=== PATIENT | male | born 1975 | race Caucasian/White ===

== ENCOUNTER 2017-02-02 08:21 | Emergency (ER) | payer OTHER ==
--- NOTE | 2017-02-02 11:59 | DIAGNOSTIC IMAGING REPORT ---
PROCEDURE: XR ABDOMEN 1 VIEW INDICATION: ABDOMINAL PAIN TECHNIQUE: AP supine views. COMPARISON: None. FINDINGS: Bowel pattern is normal. Soft tissues and osseous structures are normal. IMPRESSION: 1. Normal abdomen.
--- NOTE | 2017-02-02 12:37 | ED NURSING NOTES ---
Clinical Report - Nurses [facility] [address] [place] [address] 02/02/2017 8:23 Patient: RA VARGAS TRIAGE Triage time 0840. Acuity: LEVEL 3. Chief Complaint: ABDOMINAL PAIN and ("my stomach is rock hard!" and hurts). Alert. --09:01 Aria Franco R.N. 09:00 02/02/17. BP: 121/86. HR: 92. RR: 18. O2 saturation: 100%. Temp: 97.5 F. Pain level now: 05/30. --09:01 Aria Franco R.N. Weight: 122.4 kg stated. Height/Length: 73 inches Per Patient. BMI: 35.6. --09:00 Aria Franco R.N. Medications Gabapentin Oral. --08:55 Aria Franco R.N. Carvedilol Phosphate ER Oral. Furosemide Oral. --08:55 Aria Franco R.N. PT doesn't know any medication doses he takes. --11:14 Aria Franco R.N. Allergies Sulfa Antibiotics. --08:55 Aria Franco R.N. Tramadol. --08:56 Aria Franco R.N. History Arrived by private vehicle. Historian: patient. Accompanied by father. Primary physician (Rubens). This started last night. Treatment [employer]: None. SOCIAL HX: Smoker- current status unknown (cigarette). No alcohol use or drug use. NUTRITIONAL RISK ASSESSMENT: The nutritional risk assessment revealed no deficiencies. FUNCTIONAL ASSESSMENT: Functional assessment: no impairments noted. --09:01 Aria Franco R.N. PROBLEMS: Laceration. Abscess. Hyperlipidemia. High blood pressure. --08:57 Aria Franco R.N. Cellulitis LE's. CHF. --08:59 Aria Franco R.N. The following entry was modified by Aria Franco R.N., 08:58 Reason - Struck from template <<STRICKEN ENTRY-- Diabetes Mellitus. --08:58 Aria Franco R.N. --END STRIKE>>. ADDITIONAL SURGERIES: Back Surgery. Knee Surgery. --08:57 Aria Franco R.N. Interventions ID band on patient. To room. --09:01 Aria Franco R.N. PHYSICAL ASSESSMENT 09:02 02/02/17. GENERAL / NEURO / PSYCH: Alert. Oriented X 4. Appears anxious and in distress. Decreased awareness. --09:02 Aria Franco R.N. 09:02 02/02/17. RESPIRATORY: ( Last BM 2 days ago). --09:02 Aria Franco R.N. CVS: ( Pt states he took a stool softener last night.). --09:02 Aria Franco R.N. NURSING PROGRESS NOTES 08:54 02/02/2017 Site #1 started via IV in the right antecubital space with an 20g angiocath, with aseptic technique and good blood return; one attempt. Blood drawn: rainbow set. Labeled in the presence of the patient and sent to the lab. Saline lock flushed with 10 mL saline. --09:04 Aria Franco R.N. 09:02 02/02/17. Patient identifiers checked. Call light placed in reach. Bed placed in lowest position. Patient ready for evaluation- chart flagged. --09:02 Aria Franco R.N. 09:39 02/02/17. ( Pt in bathroom, checked on him since he has been in there for several minutes, pt's father states that he takes a half hour sometimes. Asked father to let me know when he comes back to get his fluids and meds given.). --09:39 Aria Franco R.N. 09:40 02/02/2017 Started bag #1 1000 mL IV Fluids IV NS (Saline); at 1000 mL/hr via site #1 via IV pump. Confirmed 5 rights. --09:45 Aria Franco R.N. 09:41 02/02/2017 Zofran (Ondansetron HCl) IVP 4 mg given over 1 minute(s) via site #1. Confirmed 5 rights. --09:45 Aria Franco R.N. 09:42 02/02/2017 Demerol (Meperidine HCl) IVP 50 mg given over 2 minute(s) via site #1. Allergies verified and confirmed 5 rights. --09:46 Aria Franco R.N. 09:44 02/02/17. ( Pt back from bathroom, states had a large BM, states his pain is 5/10 now, not 10/10. UA sent to lab.). --09:44 Aria Franco R.N. 10:45 02/02/2017 IV Fluids IV NS Discontinued: bag #1 infused. Total amount infused: 1000 mL. IV patency established. IV site checked: no pain, redness, or swelling. IV flushed thoroughly. --10:45 Aria Franco R.N. 10:51 02/02/2017 Benadryl (DiphenhydrAMINE HCl) IVP 25 mg given over 1 minute(s) via site #1. Confirmed 5 rights. --10:57 Aria Franco R.N. 10:58 02/02/2017 Lasix IVP 40 mg given over 4 minute(s) via site #1. Confirmed 5 rights. --10:58 Aria Franco R.N. 11:19 02/02/17. ( Pt found sound asleep, starting to hang off the stretcher, awakened, side rail pulled up, urinal at bedside.). --11:19 Aria Franco R.N. ( Pt given apple juice, ok'd with ERMD). --11:28 Aria Franco R.N. 11:27 02/02/17. BP: 139/97. HR: 96. RR: 18. O2 saturation: 100%. Pain level now: 0/10. --11:28 Aria Franco R.N. The patient is resting quietly. Overall patient status is improved- he states feels better (however, itching is not any better). --11:30 Aria Franco R.N. 12:34 02/02/17. Overall patient status is improved- he states feels better. --12:34 Aria Franco R.N. ( Pt states he passed a 2nd BM in bathroom.). --12:36 Aria Franco R.N. Intake & Output 11:29 02/02/17. IV fluids: 1000 mL. Urine: 375 mL. --11:29 Aria Franco R.N. Urine: 550 mL. --12:02 Aria Franco R.N. Urine: 725 mL. --12:34 Aria Franco R.N. DISPOSITION / DISCHARGE Departure time: 1242. Condition at departure: improved. No learning barriers present. Discharge instructions provided and reviewed with the patient. Reviewed medication(s) information. Prescription(s) given to the patient. Reviewed referral to family practice for followup. Verbalized understanding. Written instructions provided. The patient was discharged home and accompanied by family. He left the Emergency Department ambulatory and via private vehicle. --12:45 Aria Franco R.N. 12:37 02/02/17. BP: 104/68. HR: 87. RR: 18. O2 saturation: 99%. Temp: 98.1 F. Pain level now: 0/10. --12:45 Aria Franco R.N. Locked/Released at 02/02/2017 12:45 by Aria Franco R.N.
--- NOTE | 2017-02-02 12:37 | ED ORDER SUMMARY ---
..... Patient: RA VARGAS OrderSheet [facility] VisitID: [id number] [place] [address] 41y, M Registration Date/Time: 02/02/2017 ORDER SHEET Weight: 122.4 kg (stated) Allergies: Sulfa Antibiotics, Tramadol GENERAL ORDERS: CBC w Diff Urgent (09:02/02/2017 Mari Santos) (Ack 9:14 TBergley) (9:30 LSullivan R.N.) CMP Urgent (09:02/02/2017 Mari Santos) (Ack 9:14 TBergley) (9:30 LSullivan R.N.) UA-Culture if indicated Urgent (:02/02/2017 Mari Santos) (Ack 9:14 TBergley) (9:46 LSullivan R.N.) Amylase Urgent (:02/02/2017 Mari Santos) (Ack 9:14 TBergley) (9:30 LSullivan R.N.) Lipase Urgent (09:02/02/2017 Mari Santos) (Ack 9:14 TBergley) (9:30 LSullivan R.N.) BNP Urgent (09:42 02/02/2017 Mari Santos) (9:46 LSullivan R.N.) Abdomen 1V Urgent (10:43 02/02/2017 Mari Santos) (Ack 10:44 TBergley) (12:01 TBergley) MEDICATION ORDERS: IV FLUIDS: IV Saline Lock (09:03 02/02/2017 LSullivan R.N. per protocol) (9:04 LSullivan R.N.) IV NS : initial bolus none -, then 1000 mL/hr for X1 (NOW) (09:02/02/2017 Mari Santos) (Ack 9:40 LSullivan R.N.) (9:45 LSullivan R.N.) Zofran IV 4 mg (NOW) (09:02/02/2017 Mari Santos) (Ack 9:40 LSullivan R.N.) (9:45 LSullivan R.N.) Demerol IV 50 mg (HIGH ALERT MEDICATION, NOW) (09:11 02/02/2017 Mari Santos) (Ack 9:40 LSullivan R.N.) (9:46 LSullivan R.N.) Benadryl IV 25 mg (NOW) (10:47 02/02/2017 Mari Santos) (10:57 LSullivan R.N.) Lasix IV 40 mg (NOW) (10:47 02/02/2017 Mari Santos) (10:58 LSullivan R.N.) ORDER SHEET NOTES: [Electronically signed by Aria Franco R.N. (12:45 02/02/2017)] [Electronically signed by Mario Rivera Dr. (21:59 02/02/2017)] [Electronically locked/signed by Aria Franco R.N. (12:45 02/02/2017)]
--- NOTE | 2017-02-02 12:37 | ED CLINICAL REPORT ---
Clinical Report - Physicians/Mid Levels [facility] [address] [place] [address] 02/02/2017 8:23 Patient: RA VARGAS Time Seen: 09:04; initial patient contact. Arrived- By private vehicle. Historian- patient. HISTORY OF PRESENT ILLNESS Chief Complaint: ABDOMINAL PAIN. At its maximum, severity described as severe. When seen in the E.D., severity described as severe. Modifying factors. Not worsened by anything. Not relieved by anything. This started last night and is still present. It is described as "pain". No radiation. It is described as located in the right lower quadrant and in the lower abdomen. The patient has had nausea, loss of appetite and vomiting. No diarrhea. Similar symptoms previously: None. Recent medical care: Not recently seen/assessed. REVIEW OF SYSTEMS The patient has had constipation. No difficulty with urination, pain with urination, fever, chest pain or difficulty breathing. No chills. Last bowel movement: a few days ago. All systems otherwise negative, except as recorded above. PAST HISTORY Laceration. Abscess. Hyperlipidemia. High blood pressure. Cellulitis LE's. CHF. . .. SURGERIES: Back Surgery. Knee Surgery. SOCIAL HISTORY Current every day smoker. No alcohol use or drug use. ADDITIONAL NOTES The nursing notes have been reviewed. PHYSICAL EXAM Vital Signs: 02/02/2017 09:00 BP: 121/86. HR: 92. RR: 18. O2 saturation: 100%. Temp: 97.5 F. Pain level now: 1010. Have been reviewed as normal. Appearance: Alert. Appears to be in pain. ENT: Dry mucous membranes present. CVS: Normal heart rate and rhythm. Heart sounds normal. Respiratory: No respiratory distress. Breath sounds normal. Abdomen: Soft. Mild tenderness in the lower abdomen (Exam after a large BM which significantly relieved his pain). No guarding, rebound tenderness or obturator or psoas sign present. Bowel sounds normal. No organomegaly. No mass. Back: Normal inspection. Skin: Skin warm and dry. Extremities: No lower extremity edema. Neuro: Oriented X 3. LABS, X-RAYS, AND EKG KUB: No acute disease. Gas pattern normal. Views: AP. Technique: good. The X-rays were independently viewed by me and interpreted contemporaneously by me. Prior films were not available for comparison. Laboratory Tests: CBC w Diff: (ELMA: 02/02/2017 08:40) ( UtgRcvd 02/02/2017 09:24) Final results Test Result Flag Units (Reference) WHITE BLOOD COUNT 11.6 H K/uL (4.5-11.5) RED BLOOD COUNT 4.95 M/uL (4.50-5.90) HEMOGLOBIN 14.6 gm/dL (13.5-17.5) HEMATOCRIT 44.5 % (41.0-53.0) MEAN CELL VOLUME 90 fL (80-100) MEAN CORPUSCULAR HGB 29 pg (26-34) MEAN CORPUSCULAR HGB CONC 33 g/dL (31-37) RED CELL DISTRIBUTION WIDTH 15.5 H % (11.6-14.8) PLATELET COUNT 275 K/uL (150-400) NEUTROPHIL % 69.0 % (50-75) LYMPH % 20.1 L % (25-40) MONO % 8.9 % (3-14) EOSINOPHIL % 1.6 % (0-4) BASOPHIL % 0.4 % (0-2) CMP: (ELMA: 02/02/2017 08:40) ( MsgRcvd 02/02/2017 09:29) Final results Test Result Flag Units (Reference) GLUCOSE 134 H mg/dL (70-110) BUN 16 mg/dL (7-18) CREATININE 1.2 mg/dL (0.6-1.3) Estimated GFR >60 mL/min Estimated GFR- >60 mL/min Note: Persistent reduction over 3 months in eGFR<60 mL/min/1.73 m2 defines CKD. Patients with eGFR values>=60 mL/min/1.73 m2 may also have CKD if evidence ofpersistent proteinuria. Additional information may be foundat www.kidney.org. SODIUM 146 H mmol/L (136-145) POTASSIUM 3.6 mmol/L (3.5-5.1) CHLORIDE 105 mmol/L (98-107) CARBON DIOXIDE 35 H mmol/L (21-32) CALCIUM 9.1 mg/dL (8.5-10.1) TOTAL PROTEIN 7.5 g/dL (6.4-8.2) ALBUMIN 3.4 g/dL (3.3-5.0) BILIRUBIN, TOTAL 1.6 H mg/dL (0.0-1.0) ALKALINE PHOSPHATASE 79 U/L (46-116) AST (SGOT) 32 U/L (15-37) ALT (SGPT) 46 U/L (12-78) LIPASE 65 L U/L (73-393) AMYLASE 25 U/L (25-115) . PROGRESS AND PROCEDURES Course of Care: 12:35 02/02/17. Pt is now asymptomatic after 2 large BM's. Disposition: Discharged home in good and improved condition. Condition: good. CLINICAL IMPRESSION Chronic mild congestive heart failure Constipation (Resolved). Acute generalized abdominal pain. (Due to constipation. Resolved.). INSTRUCTIONS Your Current Medications: CONTINUE TAKING THE FOLLOWING MEDICATIONS: Carvedilol Phosphate ER Oral. Furosemide Oral. Gabapentin Oral. PT doesn't know any medication doses he takes*. OTC Medications: Colace 100 mg capsules (available over the counter): take 1 capsule orally, twice daily and for 14 days. One refill. Substitution is permissible. Follow-up: Follow up with your doctor Monday. Call for an appointment. Blood pressure screening was not performed during this visit because the patient has an active diagnosis of hypertension. (Electronically signed by Mario Rivera Dr. 02/02/2017 21:59)
--- NOTE | 2017-02-02 12:37 | ED ORDER SUMMARY ---
..... Patient: RA VARGAS OrderSheet [facility] VisitID: [id number] [place] [address] 41y, M Registration Date/Time: 02/02/2017 ORDER SHEET Weight: 122.4 kg (stated) Allergies: Sulfa Antibiotics, Tramadol GENERAL ORDERS: CBC w Diff Urgent (09:02/02/2017 Mari Santos) (Ack 9:14 TBergley) (9:30 LSullivan R.N.) CMP Urgent (09:02/02/2017 Mari Santos) (Ack 9:14 TBergley) (9:30 LSullivan R.N.) UA-Culture if indicated Urgent (:02/02/2017 Mari Santos) (Ack 9:14 TBergley) (9:46 LSullivan R.N.) Amylase Urgent (:02/02/2017 Mari Santos) (Ack 9:14 TBergley) (9:30 LSullivan R.N.) Lipase Urgent (09:02/02/2017 Mari Santos) (Ack 9:14 TBergley) (9:30 LSullivan R.N.) BNP Urgent (09:42 02/02/2017 Mari Santos) (9:46 LSullivan R.N.) Abdomen 1V Urgent (10:43 02/02/2017 Mari Santos) (Ack 10:44 TBergley) (12:01 TBergley) MEDICATION ORDERS: IV FLUIDS: IV Saline Lock (09:03 02/02/2017 LSullivan R.N. per protocol) (9:04 LSullivan R.N.) IV NS : initial bolus none -, then 1000 mL/hr for X1 (NOW) (09:02/02/2017 Mari Santos) (Ack 9:40 LSullivan R.N.) (9:45 LSullivan R.N.) Zofran IV 4 mg (NOW) (09:02/02/2017 Mari Santos) (Ack 9:40 LSullivan R.N.) (9:45 LSullivan R.N.) Demerol IV 50 mg (HIGH ALERT MEDICATION, NOW) (09:11 02/02/2017 Mari Santos) (Ack 9:40 LSullivan R.N.) (9:46 LSullivan R.N.) Benadryl IV 25 mg (NOW) (10:47 02/02/2017 Mari Santos) (10:57 LSullivan R.N.) Lasix IV 40 mg (NOW) (10:47 02/02/2017 Mari Santos) (10:58 LSullivan R.N.) ORDER SHEET NOTES: [Electronically signed by Aria Franco R.N. (12:45 02/02/2017)] [Electronically signed by Mario Rivera Dr. (21:59 02/02/2017)] [Electronically locked/signed by Aria Franco R.N. (12:45 02/02/2017)]
--- NOTE | 2017-02-02 21:59 | ED MED RECONCILIATION SUMMARY ---
Patient: RA VARGAS Medication Reconciliation Report [facility] VisitID: [id number] [address] [place] [address] 41y, M Registration Date/Time: 02/02/2017 Weight: 122.4 kg Height/Length: 73 in. BMI: 35.6 ALLERGIES: Sulfa Antibiotics, Tramadol The patient's Home Medications are listed below: CONTINUE TAKING THE FOLLOWING MEDICATIONS: Carvedilol Phosphate ER Oral Furosemide Oral Gabapentin Oral PT doesn't know any medication doses he takes The source(s) of the original Home Medication information: Not obtained. The following Medications were given to the patient in the Emergency Department: IV NS IV Fluids bolus 0, then 1000 mL/hr, administered: 02/02/2017 9:40:00 AM Zofran [IVP] IVP 4 mg, administered: 02/02/2017 9:41:00 AM Demerol [IVP] IVP 50 mg, administered: 02/02/2017 9:42:00 AM Benadryl [IVP] IVP 25 mg, administered: 02/02/2017 10:51:00 AM Lasix [IVP] IVP 40 mg, administered: 02/02/2017 10:58:00 AM The following Medications were prescribed to the patient: Colace 100 mg capsules (available over the counter): take 1 capsule orally, twice daily and for 14 days. One refill. Substitution is permissible. -- Mario Rivera Dr.
--- NOTE | 2017-02-02 21:59 | ED MED RECONCILIATION SUMMARY ---
Patient: RA VARGAS Medication Reconciliation Report [facility] VisitID: [id number] [address] [place] [address] 41y, M Registration Date/Time: 02/02/2017 Weight: 122.4 kg Height/Length: 73 in. BMI: 35.6 ALLERGIES: Sulfa Antibiotics, Tramadol The patient's Home Medications are listed below: CONTINUE TAKING THE FOLLOWING MEDICATIONS: Carvedilol Phosphate ER Oral Furosemide Oral Gabapentin Oral PT doesn't know any medication doses he takes The source(s) of the original Home Medication information: Not obtained. The following Medications were given to the patient in the Emergency Department: IV NS IV Fluids bolus 0, then 1000 mL/hr, administered: 02/02/2017 9:40:00 AM Zofran [IVP] IVP 4 mg, administered: 02/02/2017 9:41:00 AM Demerol [IVP] IVP 50 mg, administered: 02/02/2017 9:42:00 AM Benadryl [IVP] IVP 25 mg, administered: 02/02/2017 10:51:00 AM Lasix [IVP] IVP 40 mg, administered: 02/02/2017 10:58:00 AM The following Medications were prescribed to the patient: Colace 100 mg capsules (available over the counter): take 1 capsule orally, twice daily and for 14 days. One refill. Substitution is permissible. -- Mario Rivera Dr.
--- NOTE | 2017-02-02 21:59 | ED MAR SUMMARY ---
..... Medication Administration Record [facility] [address] [place] [address] Patient: RA VARGAS Visit ID: [id number] 41y, M Weight: 122.4 kg Height/Length: 73 in BMI: 35.6 ALLERGIES: Sulfa Antibiotics, Tramadol Start 09:40 02/02/2017 Aria Franco R.N., Stop 10:45 02/02/2017 Aria Franco R.N. Medication Administered: IV NS (SALINE), Dose: IV Fluids, Rate: 1000 mL/hr, Dispensed: 1000 mL bag, Site: #1 right AC. Medication Ordered: IV NS : initial bolus none -, then 1000 mL/hr for X1 (NOW). Given 09:41 02/02/2017 Aria Franco R.N. Medication Administered: ZOFRAN [IVP] (ONDANSETRON HCL), Dose: 4 mg IVP over 1 minute(s), Site: #1 right AC. Medication Ordered: Zofran IV 4 mg (NOW). Given 09:42 02/02/2017 Aria Franco R.N. Medication Administered: DEMEROL [IVP] (MEPERIDINE HCL), Dose: 50 mg IVP over 2 minute(s), Site: #1 right AC. Medication Ordered: Demerol IV 50 mg (HIGH ALERT MEDICATION, NOW). Given 10:51 02/02/2017 Aria Franco R.N. Medication Administered: BENADRYL [IVP] (DIPHENHYDRAMINE HCL), Dose: 25 mg IVP over 1 minute(s), Site: #1 right AC. Medication Ordered: Benadryl IV 25 mg (NOW). Given 10:58 02/02/2017 Aria Franco R.N. Medication Administered: LASIX [IVP], Dose: 40 mg IVP over 4 minute(s), Site: #1 right AC. Medication Ordered: Lasix IV 40 mg (NOW).
--- NOTE | 2017-02-02 21:59 | ED DISCHARGE INSTRUCTIONS ---
Patient: RA VARGAS General Instructions [facility] VisitID: [id number] [place] [address] 41y, M Registration Date/Time: 02/02/2017 Chronic mild congestive heart failure Constipation (Resolved). Acute generalized abdominal pain. (Due to constipation. Resolved.). INSTRUCTIONS Your Current Medications: CONTINUE TAKING THE FOLLOWING MEDICATIONS: Carvedilol Phosphate ER Oral. Furosemide Oral. Gabapentin Oral. PT doesn't know any medication doses he takes*. OTC Medications: Colace 100 mg capsules (available over the counter): take 1 capsule orally, twice daily and for 14 days. One refill. Substitution is permissible. Follow-up: Follow up with your doctor Monday. Call for an appointment. Blood pressure screening was not performed during this visit because the patient has an active diagnosis of hypertension. ADDITIONAL INFORMATION Abdominal Pain,Uncertain Cause [Male] Based on your visit today, the exact cause of your abdominalpain is not clear. Your exam and tests do not indicate a dangerous cause at this time. However, the signs of a serious problem may take more time to appear. Although your evaluation was reassuring today, sometimes early in the course of many conditions, exam and lab tests can appear normal. Therefore, it is important for you to watch for any new symptoms or worsening of your condition. Causes It may not be obvious what caused your symptoms. Pay attention to things that do seem to make your symptoms worse or better and discuss this with your doctor when you follow up. Diagnosis The evaluation of abdominal pain in the emergency department may onlyrequire an exam by the doctor or it may include blood, urine or imaging studies, depending on many factors. Sometimes exams and tests can identify a cause but in many cases, a clear cause is not found. Further testing at follow up visits may help to suggest a clear diagnosis. Home Care Rest as much as possible until your next exam. Try to avoid any medications (unless otherwise directed by your doctor), foods, activities, or other factors that you may have contributed to your symptoms. Try to eat foods that you know that you have tolerated well in the past. Certain diets may be recommended for some conditions that cause abdominal pain. However, since the cause of your symptoms may not be clear, discuss your diet more with your primary care provider or specialist for further recommendations. Eating several small meals per day as opposed to 2 or 3 larger meals may help. Monitor closely for anything that may make your symptoms worse or better. Pay close attention to symptoms below that may indicate worsening of your condition. Follow Up and Precautions See your doctoras instructed or sooneror if your symptoms are not improving.In some cases, you may need more testing. When to Seek Medical Attention Contact your doctor or see medical attention ifany of the following occur: Pain is becoming worse You are unable to take your medications due to excessive vomiting Swelling of the abdomen Fever of 100.4F (38C) or higher, or as directed by your health care provider Blood in vomit or bowel movements (dark red or black color) Jaundice (yellow color of eyes and skin) New onset of weakness, dizziness or fainting New onset of chest, arm, back, neck or jaw pain Heart Failure (Left Or Right Sided) The heart is a large muscle that pumps blood throughout the body. Blood carries oxygen to all the organs, muscles, and skin of your body. After the body takes the oxygen out of the blood, the blood returns to the heart. The right side of the heart collects that blood and pumps it to the lungs to receive fresh oxygen. This oxygen-rich blood from the lungs then returns to the left side of the heart where it is pumped back out to the rest of the body, starting the process all over. Heart Failure (HF) occurs when the heart muscle is weakened. This affects the pumping action of the heart. When the right side of the heart is weakened, it cant handle the blood it is receiving from the rest of the body. This blood returns to the heart through veins. When too much pressure builds up in the veins fluid leaks out into the tissues. [place] then causes that fluid to spread to those parts of the body that are the lowest. Therefore, one of the first symptoms of HF include swelling in the feet and ankles. If the condition worsens, the swelling can even go up past the knees. When the left side of the heart is weakened, it cant handle the blood it is receiving from the lungs. Pressure then builds up in the veins of the lungs, causing fluid to leakinto the lung tissues. This may be referred to as congestive heart failure.This causes you to feel short of breath, weak, or dizzy. These symptoms are often worse with exertion, such as climbing stairs or walking up hills. Lying flat is uncomfortable and can make your breathing worse. This may make sleeping difficult and force you to useextra pillows to sleep well. This condition may not only affect the right side of the heart or only the left side. While it may have started on one side, it often affects both sides. Causes of heart failure Coronary artery disease Prior heart attack (also known as acute myocardial infarction, or AMI) High blood pressure Damaged heart valve Diabetes Obesity Cigarette smoking Alcohol abuse Treatment Heart failure is a chronic condition. There is no cure. The purpose of medical treatment is to improve the pumping action of the heart, and remove excess water from the body. A number of medications can help achieve this goal,improvesymptoms and prevent the heart from becoming weaker. Another major goal is to better treat the caues of heart failure, such as diabetes, high blood pressure, and your lifestyle. Home care Check your weight every day. A sudden increase in weight gain could mean worsening heart failure. Use the same scale every day Weigh yourself at the same time every day Make sure the scale is on the floor, not on a rug Keep a record of your weight every day, so your doctor can see it. If you are not given a log sheet for this, keep a separate journal for this purpose. Reduce your salt (sodium) intake. Avoid high-salt foods (olives, pickles, smoked meats, salted potato chips, etc.). Do not add salt to your food at the table and use only small amounts of salt when cooking. Follow your doctors recommendations about how much fluid intake is safe. Stop smoking. Reduce alcohol use. Lose weight if you are overweight. The excess weight adds a lot of stress on the workload of the heart. Stay active. Talk to your doctor about an exercise program that is safe for your heart. Keep your feet elevated to reduce swelling. Ask your doctor about support hose as a preventive treatment for daytime leg swelling. Besides taking your medicine as instructed, an important part of treatment includes lifestyle changes such as diet, physical activity, stopping smoking, and weight control. Improve your diet. Often in the hospital, people are given a "heart healthy diet." This includes more fresh foods, lower fat, less processed foots, and lower salt. Follow-up care Follow up with your doctor as directed by our staff. Make sure to keep any appointments that were made for you as this can help better control heart failure. If an X-ray was done, you will be notified of any new findings that may affect your care. Call 911 Call 911 if you: Become severely short of breath Feel lightheaded, or feel like you might pass out or faint Have chest pain or discomfort that is different than usual, the medicines your doctor told you to use for this do not help, or the pain lasts longer than 10 to 15 minutes Suddendly develop a rapid heart rate When to seek medical care Get prompt medical attention if you have any of the following signs of worsening heart failure: Sudden weight gain (3or more pounds in one day or5or more pounds in one week) Trouble breathing not related to being active New or increased swelling of your legs or ankles Swelling or pain in your abdomen Breathing trouble at night (waking up short of breath, needing more pillows to breathe) Frequent coughing that doesnt go away Feeling much more tired than usual Constipation (Adult) Constipation is bowel movements that are less frequent than usual. Stools often become very hard and difficult to pass. This may lead to abdominal pain and bloating. It may also cause painful bowel movements. Constipation may be due to a diet thats low in fiber. Some medications, especially pain medications, can also cause it. Constipation may be treated with enemas, suppositories, laxatives or stool softeners. Your doctor will advise you which will work best for you. Follow the advice below to help avoid this problem in the future. Home Care Medication: Take any medicines as directed. Some laxatives are safe only for occasional use. Others can be taken on a regular basis. Talk to your doctor or pharmacist if you have questions. General Care: Prescription pain medications can cause constipation. If you are prescribed pain medications, ask the doctor whether you should also take a stool softener. A diet high in fiber with plenty of fluids helps to maintain regular, soft bowel movements. The following foods are good sources of dietary fiber: Cereals and breads: Whole grain cereal with bran, oatmeal, rolled oats, whole grain breads Fruits: All fruits (fresh and dried), raisins, prunes, apricots, berries, figs Vegetables: Any fresh vegetables, especially peas, broccoli, brussels sprouts, winter squash, green beans, cauliflower, [place] beans, carrots Other: Popcorn, brown rice Drink plenty of water when you increase the amount of fiber you eat. Follow Up with your doctor or return to this facility if symptoms do not improve in the next few days. You may require further tests or a referral to a specialist. Get Prompt Medical Attention if any of the following occur: Fever over 100.4F (38C) Failure to resume normal bowel movements Increasing abdominal or back pain Nausea or vomiting Abdominal swelling Blood in the stool Weakness, dizziness or fainting Unexpected vaginal bleeding Low-Salt Diet (2 Grams/Day) This diet eliminates foods that are high in salt and restricts the amount of salt that you cook with. It is most often used for patients with high blood pressure, edema (fluid retention), kidney, liver, and heart disease. Table salt contains the mineral sodium. The body needs sodium to work normally. But too much sodium can make your health problems worse. Your healthcare provider is recommending a low-salt (also called low-sodium) diet for you. Your total daily allowance of salt (sodium) is 2 grams. This equals 2,000 milligrams (mg). It is less than 1 teaspoon of table salt. This means you can have only about 700 mg of sodium at each meal. When you cook, limit the salt you use. And if you can avoid using salt, even better. Do not add salt at the table. So, throw away the saltshaker! When shopping, read the package labels. Salt is often called sodium on the label. Choose foods that are Salt-Free, Low Salt, or Very Low Salt. Note that foods with Reduced Salt may notlower your salt intake enough. Beverages OK: Tea, coffee, carbonated beverages, juices AVOID: Flavored international coffees, electrolyte replacement drinks, sports beverages Bread & Cereals OK: All regular bread, rolls, cereals, cakes; low-salt crackers, matzoh crackers AVOID: Salted crackers, pretzels, popcorn; indian toast, pancakes, muffins Fruits & Desserts OK: Ice cream, frozen yogurt, juice bars, gelatin (Jell-O), cookies and pies, sugar, honey, jelly, hard candy AVOID: Most pies, cakes and cookies prepared or processed with salt, instant pudding Meats OK: All fresh meat, fish, poultry, low-salt tuna AVOID: Smoked, pickled, brine-cured, or salted meats or fish. Thisincludes mukherjee, chipped beef, corned beef, hot dogs, luncheon meats, ham, kosher meats, salt pork, sausage, canned tuna, salted codfish, smokedsalmon, [place], sardines, or anchovies. Dairy OK: Milk, chocolate milk, hot chocolate mix; eggs, Low Salt cheeses, yogurt, egg substitute AVOID: Processed cheese, cheese spreads, Ro[place]ef[place], Camembert, and cottage cheese, buttermilk, instant breakfast drink Beans, Potatoes & Pasta OK: Dry beans, split peas, lentils, potatoes, rice, macaroni, noodles, spaghetti without added salt AVOID: Potato chips, tortilla chips, and similar products Soups OK: Low-salt soups and broths made with allowed foods AVOID: Bouillon cubes, soups with smoked or salted meats, regular soup and broth Vegetables OK: Most are okay; low-salt tomato and vegetable juices AVOID: Sauerkraut and other brine-soaked vegetables, pickles and other pickled vegetables, tomato juice, olives Seasoning & Spices OK: Most seasonings are okay. Good substitutes for salt include: fresh herb blends, Tabasco, lemon, garlic, huerta, vinegar, dry mustard, parsley, cilantro, horseradish, tomato paste, regular margarine, mayonnaise, butter, cream cheese, vegetable oil, cream, low-salt salad dressing and gravy AVOID: Regular ketchup, relishes, pickles, soy sauce, teriyaki sauce, Worcestershire sauce, BBQ sauce, tartar sauce, meat tenderizer, chili sauce, regular gravy, regular salad dressing Docusate Sodium Oral tablet What is this medicine? DOCUSATE (doc CUE sayt) is stool softener. It helps prevent constipation and straining or discomfort associated with hard or dry stools. How should I use this medicine? Take this medicine by mouth with a glass of water. Follow the directions on the label. Take your doses at regular intervals. Do not take your medicine more often than directed. Talk to your workers compensation coordinator regarding the use of this medicine in children. While this medicine may be prescribed for children as young as 2 years for selected conditions, precautions do apply. What side effects may I notice from receiving this medicine? Side effects that you should report to your doctor or health career development director as soon as possible: allergic reactions like skin rash, itching or hives, swelling of the face, lips, or tongue Side effects that usually do not require medical attention (report to your doctor or health career development director if they continue or are bothersome): diarrhea stomach cramps throat irritation What may interact with this medicine? mineral oil What if I miss a dose? If you miss a dose, take it as soon as you can. If it is almost time for your next dose, take only that dose. Do not take double or extra doses. Where should I keep my medicine? Keep out of the reach of children. Store at room temperature between 15 and 30 degrees C (59 and 86 degrees F). Throw away any unused medicine after the expiration date. What should I tell my health care provider before I take this medicine? They need to know if you have any of these conditions: nausea or vomiting severe constipation stomach pain sudden change in bowel habit lasting more than 2 weeks an unusual or allergic reaction to docusate, other medicines, foods, dyes, or preservatives or trying to get breast-feeding What should I watch for while using this medicine? Do not use for more than one week without advice from your doctor or health career development director. If your constipation returns, check with your doctor or health career development director. Drink plenty of water while taking this medicine. Drinking water helps decrease constipation. Stop using this medicine and contact your doctor or health career development director if you experience any rectal bleeding or do not have a bowel movement after use. These could be signs of a more serious condition. You have been given the following additional information: Abdominal Pain, Unknown Cause, (Male) Heart Failure, General Constipation (Adult) Diet, Low Salt (2Gm) Docusate Sodium Oral tablet (Electronically signed by Mario Rivera Dr. 02/02/2017 21:59)
--- NOTE | 2017-02-02 21:59 | ED MAR SUMMARY ---
..... Medication Administration Record Located Within [facility] [address] [place] [place] [address] Patient: RA VARGAS Visit ID: [id number] 41y, M Weight: 122.4 kg Height/Length: 73 in BMI: 35.6 ALLERGIES: Sulfa Antibiotics, Tramadol Start 09:40 02/02/2017 Aria Franco R.N., Stop 10:45 02/02/2017 Aria Franco R.N. Medication Administered: IV NS (SALINE), Dose: IV Fluids, Rate: 1000 mL/hr, Dispensed: 1000 mL bag, Site: #1 right AC. Medication Ordered: IV NS : initial bolus none -, then 1000 mL/hr for X1 (NOW). Given 09:41 02/02/2017 Aria Franco R.N. Medication Administered: ZOFRAN [IVP] (ONDANSETRON HCL), Dose: 4 mg IVP over 1 minute(s), Site: #1 right AC. Medication Ordered: Zofran IV 4 mg (NOW). Given 09:42 02/02/2017 Aria Franco R.N. Medication Administered: DEMEROL [IVP] (MEPERIDINE HCL), Dose: 50 mg IVP over 2 minute(s), Site: #1 right AC. Medication Ordered: Demerol IV 50 mg (HIGH ALERT MEDICATION, NOW). Given 10:51 02/02/2017 Aria Franco R.N. Medication Administered: BENADRYL [IVP] (DIPHENHYDRAMINE HCL), Dose: 25 mg IVP over 1 minute(s), Site: #1 right AC. Medication Ordered: Benadryl IV 25 mg (NOW). Given 10:58 02/02/2017 Aria Franco R.N. Medication Administered: LASIX [IVP], Dose: 40 mg IVP over 4 minute(s), Site: #1 right AC. Medication Ordered: Lasix IV 40 mg (NOW).
== END 2017-02-02 12:42 | disposition home or self-care (01) ==
LOC: ED SRH 08:21
DX: K59.00 Constipation, unspecified (principal); I50.9 Heart failure, unspecified; R10.31 Right lower quadrant pain; I11.0 Hypertensive heart disease with heart failure; E78.5 Hyperlipidemia, unspecified; F17.200 Nicotine dependence, unspecified, uncomplicated
CPT/HCPCS: 90004; 90074; 90100; 91320; 92235; 92530; 95059

== ENCOUNTER 2017-02-05 16:38 | Emergency (ER) | payer OTHER ==
--- NOTE | 2017-02-05 18:11 | DIAGNOSTIC IMAGING REPORT ---
PROCEDURE: XR CHEST 1 VIEW INDICATION: SHORTNESS OF BREATH TECHNIQUE: Portable AP view (1705 hours). COMPARISON: None. FINDINGS: Lungs are clear. Moderate cardiomegaly. Mediastinum is normal. Thorax is normal. IMPRESSION: 1. Moderate cardiomegaly. Consider cardiac chamber enlargement or pericardial effusion. 2. Otherwise negative chest.
--- NOTE | 2017-02-05 19:13 | DIAGNOSTIC IMAGING REPORT ---
PROCEDURE: CTA THORAX WITH CONTRAST INDICATION: Short of breath. History of congestive heart failure. TECHNIQUE: 120 ml of Isovue 370 was injected intravenously and axial images were obtained of the entire thorax with 3D sagittal and coronal MIP reconstructions. COMPARISON: Compared to chest x-ray earlier today (02/05/2017). FINDINGS: Study is limited due to poor opacification of peripheral vessels (despite prolonged injection delay). Allowing for this, there is nothing to suggest pulmonary embolus. Moderate cardiomegaly with left ventricular left atrial enlargement. Minimal interstitial edema. Small bilateral pleural effusions (right greater than left) . Mediastinum is normal. Thorax is normal. Portions of the upper abdomen are seen. There is a contracted gallbladder (with moderate ingested material in the stomach). IMPRESSION: 1. Moderate cardiomegaly with left ventricular left atrial enlargement assess with minimal interstitial edema and small pleural effusions (right greater left) . Findings are compatible with congestive heart failure. 2. Limited opacification of peripheral pulmonary vessels. Allowing for this, there is no evidence of pulmonary embolus. 3. Contracted gallbladder which may be a reflection of ingested food or chronic congestive failure. 4. Findings as with Dr. Tate Altamirano. All CT scans at this facility use dose modulation, iterative reconstruction, and/or weight-based dosing when appropriate to reduce radiation dose to as low as reasonably achievable.
--- NOTE | 2017-02-05 19:38 | DIAGNOSTIC IMAGING REPORT ---
PROCEDURE: US VENOUS - BILATERAL EXT INDICATION: Bilateral lower extremity pain and swelling. TECHNIQUE: Color Doppler duplex imaging of the deep and superficial venous system without and with compression. COMPARISON: None. FINDINGS: RIGHT LOWER EXTREMITY: Deep and superficial venous system of the right lower extremity is within normal limits. There is no evidence of deep vein thrombosis or superficial thrombophlebitis. LEFT LOWER EXTREMITY: Deep and superficial venous system of the left lower extremity is within normal limits. There is no evidence of deep vein thrombosis or superficial thrombophlebitis. IMPRESSION: 1. Negative venous ultrasound of the bilateral lower extremities.
--- NOTE | 2017-02-05 19:56 | ED CLINICAL REPORT ---
Clinical Report - Physicians/Mid Levels [facility] [address] [place] [address] 02/05/2017 16:38 Patient: RA VARGAS Time Seen: 16:54. Arrived- By private vehicle. Historian- patient. HISTORY OF PRESENT ILLNESS Chief Complaint: DYSPNEA and HISTORY OF CONGESTIVE HEART FAILURE. This started about 2 days ago and is still present. It was gradual in onset and has been constant. The dyspnea is severe. The patient has had a cough, wheezing, dyspnea on exertion and anxiety and experienced sweating episodes. No sputum production, fever, chills or chest pain or discomfort. No orthopnea. The patient has had severe right and left calf pain. He has had right and left foot swelling (for 3 weeks). Similar symptoms previously: REVIEW OF SYSTEMS He says that he is out of his gabapentin and furosemide. All systems otherwise negative, except as recorded above. PAST HISTORY PCP - Rubens. Problems: Congestive Heart Failure. Abdominal Pain. Constipation. Cellulitis LE's. CHF. Laceration. Abscess. Hyperlipidemia. High blood pressure. Additional Surgeries: Back Surgery. Knee Surgery. Medications: Carvedilol Phosphate ER Oral. Allergies: Sulfa Antibiotics. Tramadol. SOCIAL HISTORY Current every day light tobacco smoker (cigarette)- less than 1/2 a pack per day. No alcohol use or drug use. FAMILY HISTORY Diabetes in first-degree relative (mother and father); heart disease in first-degree relative (father). ADDITIONAL NOTES The nursing notes have been reviewed. PHYSICAL EXAM Vital Signs: 02/05/2017 16:44 BP: 148/109. HR: 103. RR: 24. O2 saturation: 99%. Temp: 97.7 F. Have been reviewed. Appearance: Alert. Anxious. He is morbidly obese. Eyes: Pupils equal, round and reactive to light. ENT: Pharynx normal. Neck: Normal inspection. No jugular venous distention. Neck supple. CVS: Normal heart rate and rhythm. Heart sounds normal. Respiratory: No respiratory distress. Decreased air movement. No rales or rhonchi. Abdomen: Soft and nontender. No organomegaly. Obese. Skin: Skin warm and dry. Extremities: Mild right-sided and left-sided calf tenderness. Extremities exhibit normal ROM. (He had bilateral lower extremity pretibial hairlessness and hyperpigmentation). LABS, X-RAYS, AND EKG EKG: Rate: 95. Nondiagnostic Q waves in lead V1, V2 and V3. Prior EKG unavailable. The study has been independently viewed by me. Chest X-ray: (IMPRESSION: 1. Moderate cardiomegaly. Consider cardiac chamber enlargement or pericardial effusion. 2. Otherwise negative chest.). The X-rays were interpreted contemporaneously by me and discussed with the radiologist. Chest CT: (IMPRESSION: 1. Moderate cardiomegaly with left ventricular left atrial enlargement assess with minimal interstitial edema and small pleural effusions (right greater left). Findings are compatible with congestive heart failure. 2. Limited opacification of peripheral pulmonary vessels. Allowing for this, there is no evidence of pulmonary embolus. 3. Contracted gallbladder which may be a reflection of ingested food or chronic congestive failure.). The study was interpreted contemporaneously by me and discussed with the radiologist. Lower Extremity Sonography: IMPRESSION: 1. Negative venous ultrasound of the bilateral lower extremities. The study was interpreted by the radiologist and contemporaneously by me. Laboratory Tests: UA-Culture if indicated: (ELMA: 02/05/2017 19:05) ( MsgRcvd 02/05/2017 19:40) Final results Test Result Flag Units (Reference) URINE COLOR YELLOW URINE APPEARANCE CLEAR URINE GLUCOSE NEGATIVE (NEGATIVE) URINE BILIRUBIN NEGATIVE (NEGATIVE) URINE KETONE NEGATIVE (NEGATIVE) URINE SPECIFIC GRAVITY 1.010 (1.010-1.030) URINE PH 8.0 (5.0-8.0) URINE PROTEIN NEGATIVE (NEGATIVE) URINE UROBILINOGEN 0.2 EU/dL (0.2-1.0) URINE NITRITE NEGATIVE (NEGATIVE) URINE BLOOD NEGATIVE (NEGATIVE) URINE LEUK ESTERASE NEGATIVE (NEGATIVE) URINE RBC NONE SEEN rbc/hpf (0-1) URINE WBC NONE SEEN wbc/hpf (0-1) URINE EPITHELIAL CELLS RARE EPI/hpf (0-5) URINE BACTERIA NONE SEEN (NONE SEEN) URINE COMMENT CULT NOT INDICATED URINE CULTURES ARE SET-UP BASED ON THE FOLLOWING CRITERIA:POSITIVE NITRITEPOSITIVE LEUKOCYTE ESTERASEGREATER THAN 10 WHITE BLOOD CELLSMODERATE (2+) OR GREATER BACTERIA CBC w Diff: (ELMA: 02/05/2017 16:50) ( [facility] [place] 17:16) Final results Test Result Flag Units (Reference) WHITE BLOOD COUNT 10.7 K/uL (4.5-11.5) RED BLOOD COUNT 4.79 M/uL (4.50-5.90) HEMOGLOBIN 14.0 gm/dL (13.5-17.5) HEMATOCRIT 43.3 % (41.0-53.0) MEAN CELL VOLUME 90 fL (80-100) MEAN CORPUSCULAR HGB 29 pg (26-34) MEAN CORPUSCULAR HGB CONC 32 g/dL (31-37) RED CELL DISTRIBUTION WIDTH 15.6 H % (11.6-14.8) PLATELET COUNT 248 K/uL (150-400) LYMPH % 22.7 L % (25-40) MONO % 2.8 L % (3-14) GRANULOCYTE % 74.5 [id number]: (ELMA: 02/05/2017 16:50) ( [facility] 02/05[facility] 17:35) Final results Test Result Flag Units (Reference) D-DIMER QUANTITATIVE 0.84 H ug/mLFEU (0.27-0.52) The primary value of this quantitative assay relates toits negative predictive value (i.e. exclusion) of pulmonaryembolism/deep vein thrombosis/DIC.Elevated levels of d-dimer may also occur with:, age, cancer, inflammation, liver disease,post-op, infection, hematoma, coronary disease, peripheralarteriopathy, bleeding disorders and thrombolytic treatment.Results should be correlated with other clinical andradiological data.Testing Methodology: Latex Immunoassay BNP: (ELMA: 02/05/2017 16:50) ( [facility] 02/05/2017 18:34) Final results Test Result Flag Units (Reference) B-TYPE NATRIURETIC PEPTIDE 470 H pg/ml (5-100) CMP: (ELMA: 02/05/2017 16:50) ( [facility] [place] 02/05/2017 18:01) Final results Test Result Flag Units (Reference) GLUCOSE 137 H mg/dL (70-110) BUN 23 H mg/dL (7-18) CREATININE 1.3 mg/dL (0.6-1.3) Estimated GFR >60 mL/min Estimated GFR- >60 mL/min Note: Persistent reduction over 3 months in eGFR<60 mL/min/1.73 m2 defines CKD. Patients with eGFR values>=60 mL/min/1.73 m2 may also have CKD if evidence ofpersistent proteinuria. Additional information may be foundat www.kidney.org. SODIUM 141 mmol/L (136-145) POTASSIUM 3.7 mmol/L (3.5-5.1) CHLORIDE 104 mmol/L (98-107) CARBON DIOXIDE 29 mmol/L (21-32) CALCIUM 8.8 mg/dL (8.5-10.1) TOTAL PROTEIN 6.6 g/dL (6.4-8.2) ALBUMIN 2.9 L g/dL (3.3-5.0) BILIRUBIN, TOTAL 0.9 mg/dL (0.0-1.0) ALKALINE PHOSPHATASE 76 U/L (46-116) AST (SGOT) 25 U/L (15-37) ALT (SGPT) 38 U/L (12-78) LIPASE 116 U/L (73-393) AMYLASE 30 U/L (25-115) CPK 140 U/L (24-260) TROPONIN I 0.07 ng/mL (0.00-1.5) TROPONIN REFERENCE RANGE:<0.1 NEGATIVE0.1-1.5 INDETERMINANT>1.5 POSITIVE . PROGRESS AND PROCEDURES Course of Care: Symptoms better. Vital signs have been reviewed. Physical exam findings are improved. Patient/family counseled. Old medical records reviewed. Disposition: Discharged. Condition: stable. CLINICAL IMPRESSION Chronic congestive heart failure INSTRUCTIONS Do not smoke- benefits of smoking cessation discussed (>3 -10 minutes). Seek medical help to quit smoking. Warnings: Further evaluation is necessary. GENERAL WARNINGS: Return or contact your physician immediately if your condition worsens or changes unexpectedly, if not improving as expected, or if other problems arise. Your Current Medications: CONTINUE TAKING THE FOLLOWING MEDICATIONS: Carvedilol Phosphate ER Oral. Prescription Medications: Lasix 20 mg: Take 1 orally every 24 hours. Dispense fifteen (15). No refills. Substitution is permissible. Gabapentin 100 mg capsules: take 1 orally every 8 hours. Dispense forty-five (45). No refill. Follow-up: Follow up with your doctor Art tomorrow. Call for the next available appointment. Understanding of the discharge instructions verbalized by patient. (Electronically signed by Tate Altamirano MD 02/07/2017 9:57)
--- NOTE | 2017-02-05 19:56 | ED ORDER SUMMARY ---
..... Patient: RA VARGAS OrderSheet [facility] VisitID: [id number] [place] [address] 41y, M Registration Date/Time: 02/05/2017 ORDER SHEET Weight: 117.9 kg (estimated) Allergies: Sulfa Antibiotics, Tramadol GENERAL ORDERS: Chest 1V Urgent (16:54 02/05/2017 Christo BORREGO) (Ack 16:56 AMcQuoid ER TechMinnie) (17:05 MWinterer R.N.) Sign Board Erector (Continuous) (16:54 02/05/2017 Christo BORREGO) (Ack 16:56 AMcSabrina ER Julio) (16:56 MWinterer R.N.) CBC w Diff Urgent (16:55 02/05/2017 Christo BORREGO) (Ack 16:56 Rayray ER Julio) (17:05 MWinterer R.N.) CMP Urgent (16:55 02/05/2017 Christo BORREGO) (Ack 16:56 AMcQuoid ER TechMinnie) (17:05 MWinterer R.N.) UA-Culture if indicated Urgent (16:55 02/05/2017 Christo BORREGO) (Ack 16:56 Rayray Kim) (19:03 MWinterer R.N.) Amylase Urgent (16:55 02/05/2017 Christo BORREGO) (Ack 16:56 Rayray ER Julio) (17:05 MWinterer R.N.) Lipase Urgent (16:55 02/05/2017 Christo BORREGO) (Ack 16:56 AMcRanjanoid ER TechMinnie) (17:05 MWinterer R.N.) CPK Urgent (16:55 02/05/2017 Christo BORREGO) (Ack 16:56 AMcSabrina ER Julio) (17:05 MWinterer R.N.) Troponin-I Urgent (16:55 02/05/2017 Christo BORREGO) (Ack 16:56 Rayray ER Julio) (17:05 MWinterer R.N.) D-Dimer Urgent (16:55 02/05/2017 Christo BORREGO) (Ack 16:56 AMcQuoid ER Tech1) (17:05 MWinterer R.N.) Pulse oximeter (16:55 02/05/2017 Christo BORREGO) (Ack 16:56 AMcQuoid ER Tech1) (16:56 MWinterer R.N.) EKG - ER Stat (16:55 02/05/2017 Christo BORREGO) (Ack 16:56 AMcQuoid ER Tech1) (16:56 OHernandez) BNP Urgent (17:54 02/05/2017 Christo BORREGO) (18:08 AMcQuoid ER Tech1) CTA Thorax w Cont (No) (See report) Urgent (18:12 02/05/2017 Christo BORREGO) (Ack 18:15 AMcQuoid ER Tech1) (18:48 Levi) US Venous Bilat Urgent (18:34 02/05/2017 Chritso BORREGO) (Ack 18:35 AMcQuoid ER Tech1) (19:09 EHassan R.N.) MEDICATION ORDERS: IV FLUIDS: IV Saline Lock (16:55 02/05/2017 Christo BORREGO) (17:05 MWinterer R.N.) Lasix IV 40 mg (NOW) (18:10 02/05/2017 Christo BORREGO) (Cancelled: Other18:11 Christo BORREGO) Lasix IV 40 mg (NOW) (19:08 02/05/2017 Christo BORREGO) (19:13 EHassan R.N.) ORDER SHEET NOTES: [Electronically signed by Anayeli Gardiner R.N. (23:59 02/05/2017)] [Electronically signed by Tate Altamirano MD (09:57 02/07/2017)] [Electronically locked/signed by Anayeli Gardiner R.N. (23:59 02/05/2017)]
--- NOTE | 2017-02-05 19:56 | ED NURSING NOTES ---
Clinical Report - Nurses [facility] [address] [place] [address] 02/05/2017 16:38 [id number] TRI[facility] Triage time 16:42. Acuity: LEVEL 3. Chief Complaint: SHORTNESS OF BREATH and DIFFICULTY BREATHING. 16:49 02/05/17. Alert. No acute distress. ANGELA COMA SCORE: [place] Coma Scale: 15- eyes open spontaneously (4); best verbal response- oriented x 4 (5); best motor response- obeys commands (6). --16:49 Rolly Pham R.N. 16:44 02/05/17. BP: 148/109. HR: 103. RR: 24. O2 saturation: 99% on room air. Temp: 97.7 F (oral). Pain level now 8/10. --16:49 Rolly Pham R.N. Weight: 117.9 kg estimated. Height/Length: 73 inches Per Patient. BMI: 34.3. --16:43 Rolly Pham R.N. Medications Carvedilol Phosphate ER Oral. --16:48 Rolly Pham R.N. Allergies Sulfa Antibiotics. --16:48 Rolly Pham R.N. Tramadol. --16:48 Rolly Pham R.N. Medication/allergy information source: the patient. --16:49 Rolly Pham R.N. History Arrived by private vehicle. Primary physician (angelo). ( revisit for shortness of breath and left leg cellulitis. States he was seen here earlier in the week. Pt states he was diagnosed with cellulitis "months ago". Also complains of abdomen feeling full.). Onset. (1 - 2 months ago). Treatment MAINTENANCE ELECTRICIAN: None. SOCIAL HX: Heavy tobacco smoker (cigarette)- less than 1 pack per day. No alcohol use or drug use. ABUSE ASSESSMENT: Abuse assessment: The patient was asked "Do you feel safe in your home?". No report of abuse. SELF HARM ASSESSMENT: A self harm assessment was performed. The patient answered "no" to the question "Do you have thoughts of harming or killing yourself?" and "Have you recently had thoughts about harming or killing others?". FALL RISK ASSESSMENT: Fall risk assessment completed. No fall risk identified. NUTRITIONAL RISK ASSESSMENT: The nutritional risk assessment revealed no deficiencies. FUNCTIONAL ASSESSMENT: Functional assessment: no impairments noted. LEARNING NEEDS ASSESSMENT: The learning needs assessment revealed no barriers. SKIN INTEGRITY ASSESSMENT: Skin integrity risk assessment completed. No skin integrity risk identified. --16:49 Rolly Pham R.N. ( pt states he can't find his lasix). --16:51 Rolly Pham R.N. PROBLEMS: Congestive Heart Failure. Abdominal Pain. Constipation. Cellulitis LE's. CHF. Laceration. Abscess. Hyperlipidemia. High blood pressure. --16:48 Rolly Pham R.N. ADDITIONAL SURGERIES: Back Surgery. Knee Surgery. --16:48 Rolly Pham R.N. Interventions ID band on patient. To treatment room. --16:49 Rolly Pham R.N. PHYSICAL ASSESSMENT Ambulatory to room. GENERAL / NEURO / PSYCH: Alert. Oriented X 4. Appears anxious. RESPIRATORY: Mild respiratory distress. The patient can speak in full sentences. Nonproductive cough. CVS: Capillary refill less than 2 seconds. GI / : Abdomen soft. ( states "belly feels full"). SKIN: Skin is warm and dry. --16:51 Rolly Pham R.N. NURSING PROGRESS NOTES The plan of care for this patient has been created. supervisor toy parts former, pulse oximeter and NIBP monitor placed on patient. EKG time: (1647). EKG was performed by a tech. Patient gowned. Head of bed elevated. Call light placed in reach. Bed placed in lowest position. Brakes of bed on. --16:50 Rolly Pham R.N. EKG time: (1647). EKG was ordered, performed by a tech and shown to the ED physician. --16:53 Steph Orosco 17:05 02/05/2017 Site #1 started via IV in the left forearm with an 20g angiocath, with aseptic technique and good blood return; one attempt. Blood drawn: rainbow set. Labeled in the presence of the patient and sent to the lab. Saline lock flushed with 10 mL saline. --17:05 Yolanda Dinero R.N. 19:00 02/05/17. BP: 144/116. HR: 102. RR: 12. O2 saturation: 100% on room air. --19:01 Yolanda Dinero R.N. 19:13 02/05/2017 Lasix IVP 40 mg given over 2 minute(s) via site #1. Allergies verified and confirmed 5 rights. IV patency established. IV site checked: no pain, redness, or swelling. IV flushed thoroughly pre- and post-medication administration. IVP given by RN. --19:13 Anayeli Gardiner R.N. DISPOSITION / DISCHARGE 20:06 02/05/2017 Site #1 removed upon discharge. Manual pressure, pressure dressing, bandaid and bandage applied. --20:06 Anayeli Gardiner R.N. Cardiac rhythm: sinus tachycardia. Condition at departure: improved and stable. The goals identified in the patient's plan of care were met. Reviewed warnings. Reviewed medication(s). Reviewed referral to a incident coordinator (Dr. Jean). Patient verbalized understanding. Written instructions provided in [place]. No treatment instructions. The patient was discharged by the physician. He was discharged home and accompanied by family. He left the Emergency Department ambulatory and via private vehicle. Parent driving. FALL RISK ASSESSMENT: Fall risk assessment completed. No fall risk identified. --20:07 Anayeli Gardiner R.N. 20:00 02/05/17. BP: 138/103. HR: 107. RR: 18. O2 saturation: 97% on room air. Temp: 98.6 F (oral). Pain level now: 09/30. --20:07 Anayeli Gardiner R.N. Departure time: 2012 PM. --23:57 Anayeli Gardiner R.N. Locked/Released at 02/05/2017 23:59 by Anayeli Gardiner R.N.
--- NOTE | 2017-02-05 19:56 | ED NURSING NOTES ---
Clinical Report - Nurses [facility] [address] [place] [address] 02/05/2017 16:38 [id number] TRI[facility] Triage time 16:42. Acuity: LEVEL 3. Chief Complaint: SHORTNESS OF BREATH and DIFFICULTY BREATHING. 16:49 02/05/17. Alert. No acute distress. ANGELA COMA SCORE: [place] Coma Scale: 15- eyes open spontaneously (4); best verbal response- oriented x 4 (5); best motor response- obeys commands (6). --16:49 Rolly Pham R.N. 16:44 02/05/17. BP: 148/109. HR: 103. RR: 24. O2 saturation: 99% on room air. Temp: 97.7 F (oral). Pain level now 8/10. --16:49 Rolly Pham R.N. Weight: 117.9 kg estimated. Height/Length: 73 inches Per Patient. BMI: 34.3. --16:43 Rolly Pham R.N. Medications Carvedilol Phosphate ER Oral. --16:48 Rolly Pham R.N. Allergies Sulfa Antibiotics. --16:48 Rolly Pham R.N. Tramadol. --16:48 Rolly Pham R.N. Medication/allergy information source: the patient. --16:49 Rolly Pham R.N. History Arrived by private vehicle. Primary physician (angelo). ( revisit for shortness of breath and left leg cellulitis. States he was seen here earlier in the week. Pt states he was diagnosed with cellulitis "months ago". Also complains of abdomen feeling full.). Onset. (1 - 2 months ago). Treatment SHOESHINER: None. SOCIAL HX: Heavy tobacco smoker (cigarette)- less than 1 pack per day. No alcohol use or drug use. ABUSE ASSESSMENT: Abuse assessment: The patient was asked "Do you feel safe in your home?". No report of abuse. SELF HARM ASSESSMENT: A self harm assessment was performed. The patient answered "no" to the question "Do you have thoughts of harming or killing yourself?" and "Have you recently had thoughts about harming or killing others?". FALL RISK ASSESSMENT: Fall risk assessment completed. No fall risk identified. NUTRITIONAL RISK ASSESSMENT: The nutritional risk assessment revealed no deficiencies. FUNCTIONAL ASSESSMENT: Functional assessment: no impairments noted. LEARNING NEEDS ASSESSMENT: The learning needs assessment revealed no barriers. SKIN INTEGRITY ASSESSMENT: Skin integrity risk assessment completed. No skin integrity risk identified. --16:49 Rolly Pham R.N. ( pt states he can't find his lasix). --16:51 Rolly Pham R.N. PROBLEMS: Congestive Heart Failure. Abdominal Pain. Constipation. Cellulitis LE's. CHF. Laceration. Abscess. Hyperlipidemia. High blood pressure. --16:48 Rolly Pham R.N. ADDITIONAL SURGERIES: Back Surgery. Knee Surgery. --16:48 Rolly Pham R.N. Interventions ID band on patient. To treatment room. --16:49 Rolly Pham R.N. PHYSICAL ASSESSMENT Ambulatory to room. GENERAL / NEURO / PSYCH: Alert. Oriented X 4. Appears anxious. RESPIRATORY: Mild respiratory distress. The patient can speak in full sentences. Nonproductive cough. CVS: Capillary refill less than 2 seconds. GI / : Abdomen soft. ( states "belly feels full"). SKIN: Skin is warm and dry. --16:51 Rolly Pham R.N. NURSING PROGRESS NOTES The plan of care for this patient has been created. manager monitoring, pulse oximeter and NIBP monitor placed on patient. EKG time: (1647). EKG was performed by a tech. Patient gowned. Head of bed elevated. Call light placed in reach. Bed placed in lowest position. Brakes of bed on. --16:50 Rolly Pham R.N. EKG time: (1647). EKG was ordered, performed by a tech and shown to the ED physician. --16:53 Steph Orosco 17:05 02/05/2017 Site #1 started via IV in the left forearm with an 20g angiocath, with aseptic technique and good blood return; one attempt. Blood drawn: rainbow set. Labeled in the presence of the patient and sent to the lab. Saline lock flushed with 10 mL saline. --17:05 Yolanda Dinero R.N. 19:00 02/05/17. BP: 144/116. HR: 102. RR: 12. O2 saturation: 100% on room air. --19:01 Yolanda Dinero R.N. 19:13 02/05/2017 Lasix IVP 40 mg given over 2 minute(s) via site #1. Allergies verified and confirmed 5 rights. IV patency established. IV site checked: no pain, redness, or swelling. IV flushed thoroughly pre- and post-medication administration. IVP given by RN. --19:13 Anayeli Gardiner R.N. DISPOSITION / DISCHARGE 20:06 02/05/2017 Site #1 removed upon discharge. Manual pressure, pressure dressing, bandaid and bandage applied. --20:06 Anayeli Gardiner R.N. Cardiac rhythm: sinus tachycardia. Condition at departure: improved and stable. The goals identified in the patient's plan of care were met. Reviewed warnings. Reviewed medication(s). Reviewed referral to a pants presser (Dr. Jean). Patient verbalized understanding. Written instructions provided in Kittitian. No treatment instructions. The patient was discharged by the physician. He was discharged home and accompanied by family. He left the Emergency Department ambulatory and via private vehicle. Parent driving. FALL RISK ASSESSMENT: Fall risk assessment completed. No fall risk identified. --20:07 Anayeli Gardiner R.N. 20:00 02/05/17. BP: 138/103. HR: 107. RR: 18. O2 saturation: 97% on room air. Temp: 98.6 F (oral). Pain level now: 09/30. --20:07 Aanyeli Gardiner R.N. Departure time: 2012 PM. --23:57 Anayeli Gardiner R.N. Locked/Released at 02/05/2017 23:59 by Anayeli Gardiner R.N.
--- NOTE | 2017-02-05 19:56 | ED ORDER SUMMARY ---
..... Patient: RA VARGAS OrderSheet [facility] VisitID: [id number] [place] [address] 41y, M Registration Date/Time: 02/05/2017 ORDER SHEET Weight: 117.9 kg (estimated) Allergies: Sulfa Antibiotics, Tramadol GENERAL ORDERS: Chest 1V Urgent (16:54 02/05/2017 Christo BORREGO) (Ack 16:56 AMcQuoid ER TechMinnie) (17:05 MWinterer R.N.) Control Valve Technician (Continuous) (16:54 02/05/2017 Christo BORREGO) (Ack 16:56 AMcSabrina ER Julio) (16:56 MWinterer R.N.) CBC w Diff Urgent (16:55 02/05/2017 Christo BORREGO) (Ack 16:56 Rayray ER Julio) (17:05 MWinterer R.N.) CMP Urgent (16:55 02/05/2017 Christo BORREGO) (Ack 16:56 AMcQuoid ER TechMinnie) (17:05 MWinterer R.N.) UA-Culture if indicated Urgent (16:55 02/05/2017 Christo BORREGO) (Ack 16:56 Rayray Kim) (19:03 MWinterer R.N.) Amylase Urgent (16:55 02/05/2017 Christo BORREGO) (Ack 16:56 Rayray ER Julio) (17:05 MWinterer R.N.) Lipase Urgent (16:55 02/05/2017 Christo BORREGO) (Ack 16:56 AMcRanjanoid ER TechMinnie) (17:05 MWinterer R.N.) CPK Urgent (16:55 02/05/2017 Christo BORREGO) (Ack 16:56 AMcSabrina ER Julio) (17:05 MWinterer R.N.) Troponin-I Urgent (16:55 02/05/2017 Christo BORREGO) (Ack 16:56 Rayray ER Julio) (17:05 MWinterer R.N.) D-Dimer Urgent (16:55 02/05/2017 Christo BORREGO) (Ack 16:56 AMcQuoid ER Tech1) (17:05 MWinterer R.N.) Pulse oximeter (16:55 02/05/2017 Christo BORREGO) (Ack 16:56 AMcQuoid ER Tech1) (16:56 MWinterer R.N.) EKG - ER Stat (16:55 02/05/2017 Christo BORREGO) (Ack 16:56 AMcQuoid ER Tech1) (16:56 OHernandez) BNP Urgent (17:54 02/05/2017 Christo BORREGO) (18:08 AMcQuoid ER Tech1) CTA Thorax w Cont (No) (See report) Urgent (18:12 02/05/2017 Christo BORREGO) (Ack 18:15 AMcQuoid ER Tech1) (18:48 Levi) US Venous Bilat Urgent (18:34 02/05/2017 Christo BORREGO) (Ack 18:35 AMcQuoid ER Tech1) (19:09 EHassan R.N.) MEDICATION ORDERS: IV FLUIDS: IV Saline Lock (16:55 02/05/2017 Christo BORREGO) (17:05 MWinterer R.N.) Lasix IV 40 mg (NOW) (18:10 02/05/2017 Christo BORREGO) (Cancelled: Other18:11 Christo BORREGO) Lasix IV 40 mg (NOW) (19:08 02/05/2017 Christo BORREGO) (19:13 EHassan R.N.) ORDER SHEET NOTES: [Electronically signed by Anayeli Gardiner R.N. (23:59 02/05/2017)] [Electronically signed by Tate Altamirano MD (09:57 02/07/2017)] [Electronically locked/signed by Aanyeli Gardiner R.N. (23:59 02/05/2017)]
--- NOTE | 2017-02-07 09:57 | ED MED RECONCILIATION SUMMARY ---
Patient: RA VARGAS Medication Reconciliation Report [facility] VisitID: [id number] [address] [place] [address] 41y, M Registration Date/Time: 02/05/2017 Weight: 117.9 kg Height/Length: 73 in. BMI: 34.3 ALLERGIES: Sulfa Antibiotics, Tramadol The patient's Home Medications are listed below: CONTINUE TAKING THE FOLLOWING MEDICATIONS: Carvedilol Phosphate ER Oral The source(s) of the original Home Medication information: patient The following Medications were given to the patient in the Emergency Department: Lasix [IVP] IVP 40 mg, administered: 02/05/2017 7:13:00 PM The following Medications were prescribed to the patient: Lasix 20 mg: Take 1 orally every 24 hours. Dispense fifteen (15). No refills. Substitution is permissible. -- Tate Altamirano MD Gabapentin 100 mg capsules: take 1 orally every 8 hours. Dispense forty-five (45). No refill. -- Tate Altamirano MD
--- NOTE | 2017-02-07 09:57 | ED DISCHARGE INSTRUCTIONS ---
Patient: RA VARGAS General Instructions [facility] VisitID: [id number] [place] [address] 41y, M Registration Date/Time: 02/05/2017 Chronic congestive heart failure INSTRUCTIONS Do not smoke- benefits of smoking cessation discussed (>3 -10 minutes). Seek medical help to quit smoking. Warnings: Further evaluation is necessary. GENERAL WARNINGS: Return or contact your physician immediately if your condition worsens or changes unexpectedly, if not improving as expected, or if other problems arise. Your Current Medications: CONTINUE TAKING THE FOLLOWING MEDICATIONS: Carvedilol Phosphate ER Oral. Prescription Medications: Lasix 20 mg: Take 1 orally every 24 hours. Dispense fifteen (15). No refills. Substitution is permissible. Gabapentin 100 mg capsules: take 1 orally every 8 hours. Dispense forty-five (45). No refill. Follow-up: Follow up with your doctor Art tomorrow. Call for the next available appointment. Understanding of the discharge instructions verbalized by patient. ADDITIONAL INFORMATION Heart Failure (Left Or Right Sided) The heart is a large muscle that pumps blood throughout the body. Blood carries oxygen to all the organs, muscles, and skin of your body. After the body takes the oxygen out of the blood, the blood returns to the heart. The right side of the heart collects that blood and pumps it to the lungs to receive fresh oxygen. This oxygen-rich blood from the lungs then returns to the left side of the heart where it is pumped back out to the rest of the body, starting the process all over. Heart Failure (HF) occurs when the heart muscle is weakened. This affects the pumping action of the heart. When the right side of the heart is weakened, it cant handle the blood it is receiving from the rest of the body. This blood returns to the heart through veins. When too much pressure builds up in the veins fluid leaks out into the tissues. [place] then causes that fluid to spread to those parts of the body that are the lowest. Therefore, one of the first symptoms of HF include swelling in the feet and ankles. If the condition worsens, the swelling can even go up past the knees. When the left side of the heart is weakened, it cant handle the blood it is receiving from the lungs. Pressure then builds up in the veins of the lungs, causing fluid to leakinto the lung tissues. This may be referred to as congestive heart failure.This causes you to feel short of breath, weak, or dizzy. These symptoms are often worse with exertion, such as climbing stairs or walking up hills. Lying flat is uncomfortable and can make your breathing worse. This may make sleeping difficult and force you to useextra pillows to sleep well. This condition may not only affect the right side of the heart or only the left side. While it may have started on one side, it often affects both sides. Causes of heart failure Coronary artery disease Prior heart attack (also known as acute myocardial infarction, or AMI) High blood pressure Damaged heart valve Diabetes Obesity Cigarette smoking Alcohol abuse Treatment Heart failure is a chronic condition. There is no cure. The purpose of medical treatment is to improve the pumping action of the heart, and remove excess water from the body. A number of medications can help achieve this goal,improvesymptoms and prevent the heart from becoming weaker. Another major goal is to better treat the caues of heart failure, such as diabetes, high blood pressure, and your lifestyle. Home care Check your weight every day. A sudden increase in weight gain could mean worsening heart failure. Use the same scale every day Weigh yourself at the same time every day Make sure the scale is on the floor, not on a rug Keep a record of your weight every day, so your doctor can see it. If you are not given a log sheet for this, keep a separate journal for this purpose. Reduce your salt (sodium) intake. Avoid high-salt foods (olives, pickles, smoked meats, salted potato chips, etc.). Do not add salt to your food at the table and use only small amounts of salt when cooking. Follow your doctors recommendations about how much fluid intake is safe. Stop smoking. Reduce alcohol use. Lose weight if you are overweight. The excess weight adds a lot of stress on the workload of the heart. Stay active. Talk to your doctor about an exercise program that is safe for your heart. Keep your feet elevated to reduce swelling. Ask your doctor about support hose as a preventive treatment for daytime leg swelling. Besides taking your medicine as instructed, an important part of treatment includes lifestyle changes such as diet, physical activity, stopping smoking, and weight control. Improve your diet. Often in the hospital, people are given a "heart healthy diet." This includes more fresh foods, lower fat, less processed foots, and lower salt. Follow-up care Follow up with your doctor as directed by our staff. Make sure to keep any appointments that were made for you as this can help better control heart failure. If an X-ray was done, you will be notified of any new findings that may affect your care. Call 911 Call 911 if you: Become severely short of breath Feel lightheaded, or feel like you might pass out or faint Have chest pain or discomfort that is different than usual, the medicines your doctor told you to use for this do not help, or the pain lasts longer than 10 to 15 minutes Suddendly develop a rapid heart rate When to seek medical care Get prompt medical attention if you have any of the following signs of worsening heart failure: Sudden weight gain (3or more pounds in one day or5or more pounds in one week) Trouble breathing not related to being active New or increased swelling of your legs or ankles Swelling or pain in your abdomen Breathing trouble at night (waking up short of breath, needing more pillows to breathe) Frequent coughing that doesnt go away Feeling much more tired than usual How To Quit Smoking Smoking is one of the hardest habits to break. About half of all those who have ever smoked have been able to quit, and most of those (about 70%) who still smoke want to quit. Here are some of the best ways to stop smoking. Keep Trying: It takes most smokers about 8 tries before they are finally able to fully quit. So, the more often you try and fail, the better your chance of quitting the next time! So, don't give up! Go Cold [place]: Most ex-smokers quit cold turkey. Trying to cut back gradually doesn't seem to work as well, perhaps because it continues the smoking habit. Also, it is possible to fool yourself by inhaling more while smoking fewer cigarettes. This results in the same amount of nicotine in your body! Get Support: Support programs can make an important difference, especially for the heavy smoker. These groups offer lectures, methods to change your behavior and peer support. Call the free national Quitline for more information. 362-YDAF-ESW (924-522-7029). Low-cost or free programs are offered by many hospitals, local chapters of the [place] [employer] (234-339-3681) and the [place] [employer] (271-528-2563). Support at home is important too. Non-smokers can help by offering praise and encouragement. If the smoker fails to quit, encourage them to try again! Fdbb-Hzv-Isliela Medicines: For those who can't quit on their own, Nicotine Replacement Therapy (NRT) may make quitting much easier. Certain aids such as the nicotine patch, gum and lozenge are available without a prescription. However, it is best to use these under the guidance of your doctor. The skin patch provides a steady supply of nicotine to the body. Nicotine gum and lozenge gives temporary bursts of low levels of nicotine. Both methods take the edge off the craving for cigarettes. WARNING: If you feel symptoms of nicotine overdose, such as nausea, vomiting, dizziness, weakness, or fast heartbeat, stop using these and see your doctor. Prescription Medicines: After evaluating your smoking patterns and prior attempts at quitting, your doctor may offer a prescription medicine such as bupropion (Zyban, Wellbutrin), varenicline (Chantix, Champix), a niocotine inhaler or nasal spray. Each has its unique advantage and side effects which your doctor can review with you. Health Benefits Of Quitting: The benefits of quitting start right away and keep improving the longer you go without smokin minutes: blood pressure and pulse return to normal 8 hours: oxygen levels return to normal 2 days: ability to smell and taste begins to improve as damaged nerves start to regrow 2-3 weeks: circulation and lung function improves 1-9 months: decreased cough, congestion and shortness of breath; less tired 1 year: risk of heart attack decreases by half 5 years: risk of lung cancer decreases by half; risk of stroke becomes the same as a non-smoker For information about how to quit smoking, visit the following links: National Cancer [place] , Clearing the Air, Quit Smoking Today - an online booklet. http://www.smokefree.gov/pubs/clearing_the_air.pdf Smokefree.gov http://smokefree.gov/ QuitNet http://www.quitnet.com/ Furosemide Oral tablet What is this medicine? FUROSEMIDE (fyoor [place] se mide) is a diuretic. It helps you make more urine and to lose salt and excess water from your body. This medicine is used to treat high blood pressure, and edema or swelling from heart, kidney, or liver disease. How should I use this medicine? Take this medicine by mouth with a glass of water. Follow the directions on the prescription label. You may take this medicine with or without food. If it upsets your stomach, take it with food or milk. Do not take your medicine more often than directed. Remember that you will need to pass more urine after taking this medicine. Do not take your medicine at a time of day that will cause you problems. Do not take at bedtime. Talk to your asset protection officer regarding the use of this medicine in children. While this drug may be prescribed for selected conditions, precautions do apply. What side effects may I notice from receiving this medicine? Side effects that you should report to your doctor or health post anesthesia care unit nurse as soon as possible: blood in urine or stools dry mouth fever or chills hearing loss or ringing in the ears irregular heartbeat muscle pain or weakness, cramps skin rash stomach upset, pain, or nausea tingling or numbness in the hands or feet unusually weak or tired vomiting or diarrhea yellowing of the eyes or skin Side effects that usually do not require medical attention (report to your doctor or health post anesthesia care unit nurse if they continue or are bothersome): headache loss of appetite unusual bleeding or bruising What may interact with this medicine? aspirin and aspirin-like medicines certain antibiotics chloral hydrate cisplatin cyclosporine digoxin diuretics laxatives lithium medicines for blood pressure medicines that relax muscles for surgery methotrexate NSAIDs, medicines for pain and inflammation like ibuprofen, naproxen, or indomethacin phenytoin steroid medicines like prednisone or cortisone sucralfate What if I miss a dose? If you miss a dose, take it as soon as you can. If it is almost time for your next dose, take only that dose. Do not take double or extra doses. Where should I keep my medicine? Keep out of the reach of children. Store at room temperature between 15 and 30 degrees C (59 and 86 degrees F). Protect from light. Throw away any unused medicine after the expiration date. What should I tell my health care provider before I take this medicine? They need to know if you have any of these conditions: abnormal blood electrolytes diarrhea or vomiting gout heart disease kidney disease, small amounts of urine, or difficulty passing urine liver disease an unusual or allergic reaction to furosemide, sulfa drugs, other medicines, foods, dyes, or preservatives or trying to get breast-feeding What should I watch for while using this medicine? Visit your doctor or health post anesthesia care unit nurse for regular checks on your progress. Check your blood pressure regularly. Ask your doctor or health post anesthesia care unit nurse what your blood pressure should be, and when you should contact him or her. If you are a diabetic, check your blood sugar as directed. You may need to be on a special diet while taking this medicine. Check with your doctor. Also, ask how many glasses of fluid you need to drink a day. You must not get dehydrated. You may get drowsy or dizzy. Do not drive, use machinery, or do anything that needs mental alertness until you know how this drug affects you. Do not stand or sit up quickly, especially if you are an older patient. This reduces the risk of dizzy or fainting spells. Alcohol can make you more drowsy and dizzy. Avoid alcoholic drinks. This medicine can make you more sensitive to the sun. Keep out of the sun. If you cannot avoid being in the sun, wear protective clothing and use sunscreen. Do not use sun lamps or tanning beds/booths. Gabapentin Oral tablet What is this medicine? GABAPENTIN (GA ba pen tin) is used to control partial seizures in adults with epilepsy. It is also used to treat certain types of nerve pain. How should I use this medicine? Take this medicine by mouth. Swallow it with a drink of water. Follow the directions on the prescription label. If this medicine upsets your stomach, take it with food or milk. Take your medicine at regular intervals. Do not take it more often than directed. If you are directed to break the 600 or 800 mg tablets in half as part of your dose, the extra half tablet should be used for the next dose. If you have not used the extra half tablet within 3 days, it should be thrown away. A special MedGuide will be given to you by the pharmacist with each prescription and refill. Be sure to read this information carefully each time. Talk to your asset protection officer regarding the use of this medicine in children. Special care may be needed. What side effects may I notice from receiving this medicine? Side effects that you should report to your doctor or health post anesthesia care unit nurse as soon as possible: allergic reactions like skin rash, itching or hives, swelling of the face, lips, or tongue worsening of mood, thoughts or actions of suicide or dying Side effects that usually do not require medical attention (report to your doctor or health post anesthesia care unit nurse if they continue or are bothersome): constipation difficulty walking or controlling muscle movements dizziness nausea slurred speech tiredness tremors weight gain What may interact with this medicine? Do not take this medicine with any of the following medications: other gabapentin products This medicine may also interact with the following medications: alcohol antacids antihistamines for allergy, cough and cold certain medicines for anxiety or sleep certain medicines for depression or psychotic disturbances homatropine; hydrocodone naproxen narcotic medicines (opiates) for pain phenothiazines like chlorpromazine, mesoridazine, prochlorperazine, thioridazine What if I miss a dose? If you miss a dose, take it as soon as you can. If it is almost time for your next dose, take only that dose. Do not take double or extra doses. Where should I keep my medicine? Keep out of reach of children. Store at room temperature between 15 and 30 degrees C (59 and 86 degrees F). Throw away any unused medicine after the expiration date. What should I tell my health care provider before I take this medicine? They need to know if you have any of these conditions: kidney disease suicidal thoughts, plans, or attempt; a previous suicide attempt by you or a family member an unusual or allergic reaction to gabapentin, other medicines, foods, dyes, or preservatives or trying to get breast-feeding What should I watch for while using this medicine? Visit your doctor or health post anesthesia care unit nurse for regular checks on your progress. You may want to keep a record at home of how you feel your condition is responding to treatment. You may want to share this information with your doctor or health post anesthesia care unit nurse at each visit. You should contact your doctor or health post anesthesia care unit nurse if your seizures get worse or if you have any new types of seizures. Do not stop taking this medicine or any of your seizure medicines unless instructed by your doctor or health post anesthesia care unit nurse. Stopping your medicine suddenly can increase your seizures or their severity. Wear a medical identification bracelet or chain if you are taking this medicine for seizures, and carry a card that lists all your medications. You may get drowsy, dizzy, or have blurred vision. Do not drive, use machinery, or do anything that needs mental alertness until you know how this medicine affects you. To reduce dizzy or fainting spells, do not sit or stand up quickly, especially if you are an older patient. Alcohol can increase drowsiness and dizziness. Avoid alcoholic drinks. Your mouth may get dry. Chewing sugarless gum or sucking hard candy, and drinking plenty of water will help. The use of this medicine may increase the chance of suicidal thoughts or actions. Pay special attention to how you are responding while on this medicine. Any worsening of mood, or thoughts of suicide or dying should be reported to your health post anesthesia care unit nurse right away. Women who become while using this medicine may enroll in the [place]pile[employer] Drug Registry by calling . This registry collects information about the safety of antiepileptic drug use during . You have been given the following additional information: Heart Failure, General Smoking Cessation Furosemide Oral tablet Gabapentin Oral tablet (Electronically signed by Tate Altamirano MD 02/07/2017 9:57)
--- NOTE | 2017-02-07 09:57 | ED MAR SUMMARY ---
..... Medication Administration Record [facility] [address] [place] [place] [address] Patient: RA VARGAS Visit ID: [id number] 41y, M Weight: 117.9 kg Height/Length: 73 in BMI: 34.3 ALLERGIES: Sulfa Antibiotics, Tramadol Given 19:13 02/05/2017 Anayeli Gardiner, RLukeNLuke Medication Administered: LASIX [IVP], Dose: 40 mg IVP over 2 minute(s), Site: #1 left forearm. Medication Ordered: Lasix IV 40 mg (NOW).
--- NOTE | 2017-02-07 09:57 | ED MED RECONCILIATION SUMMARY ---
Patient: RA VARGAS Medication Reconciliation Report [facility] VisitID: [id number] [address] [place] [address] 41y, M Registration Date/Time: 02/05/2017 Weight: 117.9 kg Height/Length: 73 in. BMI: 34.3 ALLERGIES: Sulfa Antibiotics, Tramadol The patient's Home Medications are listed below: CONTINUE TAKING THE FOLLOWING MEDICATIONS: Carvedilol Phosphate ER Oral The source(s) of the original Home Medication information: patient The following Medications were given to the patient in the Emergency Department: Lasix [IVP] IVP 40 mg, administered: 02/05/2017 7:13:00 PM The following Medications were prescribed to the patient: Lasix 20 mg: Take 1 orally every 24 hours. Dispense fifteen (15). No refills. Substitution is permissible. -- Tate Altamirano MD Gabapentin 100 mg capsules: take 1 orally every 8 hours. Dispense forty-five (45). No refill. -- Tate Altamirano MD
--- NOTE | 2017-02-07 09:57 | ED DISCHARGE INSTRUCTIONS ---
Patient: RA VARGAS General Instructions Located Within [facility] VisitID: [id number] [place] [address] 41y, M Registration Date/Time: 02/05/2017 Chronic congestive heart failure INSTRUCTIONS Do not smoke- benefits of smoking cessation discussed (>3 -10 minutes). Seek medical help to quit smoking. Warnings: Further evaluation is necessary. GENERAL WARNINGS: Return or contact your physician immediately if your condition worsens or changes unexpectedly, if not improving as expected, or if other problems arise. Your Current Medications: CONTINUE TAKING THE FOLLOWING MEDICATIONS: Carvedilol Phosphate ER Oral. Prescription Medications: Lasix 20 mg: Take 1 orally every 24 hours. Dispense fifteen (15). No refills. Substitution is permissible. Gabapentin 100 mg capsules: take 1 orally every 8 hours. Dispense forty-five (45). No refill. Follow-up: Follow up with your doctor Art tomorrow. Call for the next available appointment. Understanding of the discharge instructions verbalized by patient. ADDITIONAL INFORMATION Heart Failure (Left Or Right Sided) The heart is a large muscle that pumps blood throughout the body. Blood carries oxygen to all the organs, muscles, and skin of your body. After the body takes the oxygen out of the blood, the blood returns to the heart. The right side of the heart collects that blood and pumps it to the lungs to receive fresh oxygen. This oxygen-rich blood from the lungs then returns to the left side of the heart where it is pumped back out to the rest of the body, starting the process all over. Heart Failure (HF) occurs when the heart muscle is weakened. This affects the pumping action of the heart. When the right side of the heart is weakened, it cant handle the blood it is receiving from the rest of the body. This blood returns to the heart through veins. When too much pressure builds up in the veins fluid leaks out into the tissues. [place] then causes that fluid to spread to those parts of the body that are the lowest. Therefore, one of the first symptoms of HF include swelling in the feet and ankles. If the condition worsens, the swelling can even go up past the knees. When the left side of the heart is weakened, it cant handle the blood it is receiving from the lungs. Pressure then builds up in the veins of the lungs, causing fluid to leakinto the lung tissues. This may be referred to as congestive heart failure.This causes you to feel short of breath, weak, or dizzy. These symptoms are often worse with exertion, such as climbing stairs or walking up hills. Lying flat is uncomfortable and can make your breathing worse. This may make sleeping difficult and force you to useextra pillows to sleep well. This condition may not only affect the right side of the heart or only the left side. While it may have started on one side, it often affects both sides. Causes of heart failure Coronary artery disease Prior heart attack (also known as acute myocardial infarction, or AMI) High blood pressure Damaged heart valve Diabetes Obesity Cigarette smoking Alcohol abuse Treatment Heart failure is a chronic condition. There is no cure. The purpose of medical treatment is to improve the pumping action of the heart, and remove excess water from the body. A number of medications can help achieve this goal,improvesymptoms and prevent the heart from becoming weaker. Another major goal is to better treat the caues of heart failure, such as diabetes, high blood pressure, and your lifestyle. Home care Check your weight every day. A sudden increase in weight gain could mean worsening heart failure. Use the same scale every day Weigh yourself at the same time every day Make sure the scale is on the floor, not on a rug Keep a record of your weight every day, so your doctor can see it. If you are not given a log sheet for this, keep a separate journal for this purpose. Reduce your salt (sodium) intake. Avoid high-salt foods (olives, pickles, smoked meats, salted potato chips, etc.). Do not add salt to your food at the table and use only small amounts of salt when cooking. Follow your doctors recommendations about how much fluid intake is safe. Stop smoking. Reduce alcohol use. Lose weight if you are overweight. The excess weight adds a lot of stress on the workload of the heart. Stay active. Talk to your doctor about an exercise program that is safe for your heart. Keep your feet elevated to reduce swelling. Ask your doctor about support hose as a preventive treatment for daytime leg swelling. Besides taking your medicine as instructed, an important part of treatment includes lifestyle changes such as diet, physical activity, stopping smoking, and weight control. Improve your diet. Often in the hospital, people are given a "heart healthy diet." This includes more fresh foods, lower fat, less processed foots, and lower salt. Follow-up care Follow up with your doctor as directed by our staff. Make sure to keep any appointments that were made for you as this can help better control heart failure. If an X-ray was done, you will be notified of any new findings that may affect your care. Call 911 Call 911 if you: Become severely short of breath Feel lightheaded, or feel like you might pass out or faint Have chest pain or discomfort that is different than usual, the medicines your doctor told you to use for this do not help, or the pain lasts longer than 10 to 15 minutes Suddendly develop a rapid heart rate When to seek medical care Get prompt medical attention if you have any of the following signs of worsening heart failure: Sudden weight gain (3or more pounds in one day or5or more pounds in one week) Trouble breathing not related to being active New or increased swelling of your legs or ankles Swelling or pain in your abdomen Breathing trouble at night (waking up short of breath, needing more pillows to breathe) Frequent coughing that doesnt go away Feeling much more tired than usual How To Quit Smoking Smoking is one of the hardest habits to break. About half of all those who have ever smoked have been able to quit, and most of those (about 70%) who still smoke want to quit. Here are some of the best ways to stop smoking. Keep Trying: It takes most smokers about 8 tries before they are finally able to fully quit. So, the more often you try and fail, the better your chance of quitting the next time! So, don't give up! Go Cold [place]: Most ex-smokers quit cold turkey. Trying to cut back gradually doesn't seem to work as well, perhaps because it continues the smoking habit. Also, it is possible to fool yourself by inhaling more while smoking fewer cigarettes. This results in the same amount of nicotine in your body! Get Support: Support programs can make an important difference, especially for the heavy smoker. These groups offer lectures, methods to change your behavior and peer support. Call the free national Quitline for more information. 619-SBCX-JZI (720-212-1700). Low-cost or free programs are offered by many hospitals, local chapters of the [place] [employer] (272-828-5901) and the [place] [employer] (826-950-7015). Support at home is important too. Non-smokers can help by offering praise and encouragement. If the smoker fails to quit, encourage them to try again! Rtof-Cxg-Aykyoyx Medicines: For those who can't quit on their own, Nicotine Replacement Therapy (NRT) may make quitting much easier. Certain aids such as the nicotine patch, gum and lozenge are available without a prescription. However, it is best to use these under the guidance of your doctor. The skin patch provides a steady supply of nicotine to the body. Nicotine gum and lozenge gives temporary bursts of low levels of nicotine. Both methods take the edge off the craving for cigarettes. WARNING: If you feel symptoms of nicotine overdose, such as nausea, vomiting, dizziness, weakness, or fast heartbeat, stop using these and see your doctor. Prescription Medicines: After evaluating your smoking patterns and prior attempts at quitting, your doctor may offer a prescription medicine such as bupropion (Zyban, Wellbutrin), varenicline (Chantix, Champix), a niocotine inhaler or nasal spray. Each has its unique advantage and side effects which your doctor can review with you. Health Benefits Of Quitting: The benefits of quitting start right away and keep improving the longer you go without smokin minutes: blood pressure and pulse return to normal 8 hours: oxygen levels return to normal 2 days: ability to smell and taste begins to improve as damaged nerves start to regrow 2-3 weeks: circulation and lung function improves 1-9 months: decreased cough, congestion and shortness of breath; less tired 1 year: risk of heart attack decreases by half 5 years: risk of lung cancer decreases by half; risk of stroke becomes the same as a non-smoker For information about how to quit smoking, visit the following links: National Cancer [place] , Clearing the Air, Quit Smoking Today - an online booklet. http://www.smokefree.gov/pubs/clearing_the_air.pdf Smokefree.gov http://smokefree.gov/ QuitNet http://www.quitnet.com/ Furosemide Oral tablet What is this medicine? FUROSEMIDE (fyoor [place] se mide) is a diuretic. It helps you make more urine and to lose salt and excess water from your body. This medicine is used to treat high blood pressure, and edema or swelling from heart, kidney, or liver disease. How should I use this medicine? Take this medicine by mouth with a glass of water. Follow the directions on the prescription label. You may take this medicine with or without food. If it upsets your stomach, take it with food or milk. Do not take your medicine more often than directed. Remember that you will need to pass more urine after taking this medicine. Do not take your medicine at a time of day that will cause you problems. Do not take at bedtime. Talk to your director of enterprise architecture regarding the use of this medicine in children. While this drug may be prescribed for selected conditions, precautions do apply. What side effects may I notice from receiving this medicine? Side effects that you should report to your doctor or health medicare biller as soon as possible: blood in urine or stools dry mouth fever or chills hearing loss or ringing in the ears irregular heartbeat muscle pain or weakness, cramps skin rash stomach upset, pain, or nausea tingling or numbness in the hands or feet unusually weak or tired vomiting or diarrhea yellowing of the eyes or skin Side effects that usually do not require medical attention (report to your doctor or health medicare biller if they continue or are bothersome): headache loss of appetite unusual bleeding or bruising What may interact with this medicine? aspirin and aspirin-like medicines certain antibiotics chloral hydrate cisplatin cyclosporine digoxin diuretics laxatives lithium medicines for blood pressure medicines that relax muscles for surgery methotrexate NSAIDs, medicines for pain and inflammation like ibuprofen, naproxen, or indomethacin phenytoin steroid medicines like prednisone or cortisone sucralfate What if I miss a dose? If you miss a dose, take it as soon as you can. If it is almost time for your next dose, take only that dose. Do not take double or extra doses. Where should I keep my medicine? Keep out of the reach of children. Store at room temperature between 15 and 30 degrees C (59 and 86 degrees F). Protect from light. Throw away any unused medicine after the expiration date. What should I tell my health care provider before I take this medicine? They need to know if you have any of these conditions: abnormal blood electrolytes diarrhea or vomiting gout heart disease kidney disease, small amounts of urine, or difficulty passing urine liver disease an unusual or allergic reaction to furosemide, sulfa drugs, other medicines, foods, dyes, or preservatives or trying to get breast-feeding What should I watch for while using this medicine? Visit your doctor or health medicare biller for regular checks on your progress. Check your blood pressure regularly. Ask your doctor or health medicare biller what your blood pressure should be, and when you should contact him or her. If you are a diabetic, check your blood sugar as directed. You may need to be on a special diet while taking this medicine. Check with your doctor. Also, ask how many glasses of fluid you need to drink a day. You must not get dehydrated. You may get drowsy or dizzy. Do not drive, use machinery, or do anything that needs mental alertness until you know how this drug affects you. Do not stand or sit up quickly, especially if you are an older patient. This reduces the risk of dizzy or fainting spells. Alcohol can make you more drowsy and dizzy. Avoid alcoholic drinks. This medicine can make you more sensitive to the sun. Keep out of the sun. If you cannot avoid being in the sun, wear protective clothing and use sunscreen. Do not use sun lamps or tanning beds/booths. Gabapentin Oral tablet What is this medicine? GABAPENTIN (GA ba pen tin) is used to control partial seizures in adults with epilepsy. It is also used to treat certain types of nerve pain. How should I use this medicine? Take this medicine by mouth. Swallow it with a drink of water. Follow the directions on the prescription label. If this medicine upsets your stomach, take it with food or milk. Take your medicine at regular intervals. Do not take it more often than directed. If you are directed to break the 600 or 800 mg tablets in half as part of your dose, the extra half tablet should be used for the next dose. If you have not used the extra half tablet within 3 days, it should be thrown away. A special MedGuide will be given to you by the pharmacist with each prescription and refill. Be sure to read this information carefully each time. Talk to your director of enterprise architecture regarding the use of this medicine in children. Special care may be needed. What side effects may I notice from receiving this medicine? Side effects that you should report to your doctor or health medicare biller as soon as possible: allergic reactions like skin rash, itching or hives, swelling of the face, lips, or tongue worsening of mood, thoughts or actions of suicide or dying Side effects that usually do not require medical attention (report to your doctor or health medicare biller if they continue or are bothersome): constipation difficulty walking or controlling muscle movements dizziness nausea slurred speech tiredness tremors weight gain What may interact with this medicine? Do not take this medicine with any of the following medications: other gabapentin products This medicine may also interact with the following medications: alcohol antacids antihistamines for allergy, cough and cold certain medicines for anxiety or sleep certain medicines for depression or psychotic disturbances homatropine; hydrocodone naproxen narcotic medicines (opiates) for pain phenothiazines like chlorpromazine, mesoridazine, prochlorperazine, thioridazine What if I miss a dose? If you miss a dose, take it as soon as you can. If it is almost time for your next dose, take only that dose. Do not take double or extra doses. Where should I keep my medicine? Keep out of reach of children. Store at room temperature between 15 and 30 degrees C (59 and 86 degrees F). Throw away any unused medicine after the expiration date. What should I tell my health care provider before I take this medicine? They need to know if you have any of these conditions: kidney disease suicidal thoughts, plans, or attempt; a previous suicide attempt by you or a family member an unusual or allergic reaction to gabapentin, other medicines, foods, dyes, or preservatives or trying to get breast-feeding What should I watch for while using this medicine? Visit your doctor or health medicare biller for regular checks on your progress. You may want to keep a record at home of how you feel your condition is responding to treatment. You may want to share this information with your doctor or health medicare biller at each visit. You should contact your doctor or health medicare biller if your seizures get worse or if you have any new types of seizures. Do not stop taking this medicine or any of your seizure medicines unless instructed by your doctor or health medicare biller. Stopping your medicine suddenly can increase your seizures or their severity. Wear a medical identification bracelet or chain if you are taking this medicine for seizures, and carry a card that lists all your medications. You may get drowsy, dizzy, or have blurred vision. Do not drive, use machinery, or do anything that needs mental alertness until you know how this medicine affects you. To reduce dizzy or fainting spells, do not sit or stand up quickly, especially if you are an older patient. Alcohol can increase drowsiness and dizziness. Avoid alcoholic drinks. Your mouth may get dry. Chewing sugarless gum or sucking hard candy, and drinking plenty of water will help. The use of this medicine may increase the chance of suicidal thoughts or actions. Pay special attention to how you are responding while on this medicine. Any worsening of mood, or thoughts of suicide or dying should be reported to your health medicare biller right away. Women who become while using this medicine may enroll in the [place] Antiepileptic Drug Registry by calling . This registry collects information about the safety of antiepileptic drug use during . You have been given the following additional information: Heart Failure, General Smoking Cessation Furosemide Oral tablet Gabapentin Oral tablet (Electronically signed by Tate Altamirano MD 02/07/2017 9:57)
--- NOTE | 2017-02-07 09:57 | ED MAR SUMMARY ---
..... Medication Administration Record [address] [place] [address] Patient: RA VARGAS Visit ID: [id number] 41y, M Weight: 117.9 kg Height/Length: 73 in BMI: 34.3 ALLERGIES: Sulfa Antibiotics, Tramadol Given 19:13 02/05/2017 Anayeli Gardiner, RLukeNLuke Medication Administered: LASIX [IVP], Dose: 40 mg IVP over 2 minute(s), Site: #1 left forearm. Medication Ordered: Lasix IV 40 mg (NOW).
== END 2017-02-05 20:13 | disposition home or self-care (01) ==
LOC: ED SRH 16:38
DX: I50.9 Heart failure, unspecified (principal); I11.0 Hypertensive heart disease with heart failure; M79.662 Pain in left lower leg; M79.661 Pain in right lower leg; E78.5 Hyperlipidemia, unspecified; Z79.899 Other long term (current) drug therapy; Z88.2 Allergy status to sulfonamides; Z88.5 Allergy status to narcotic agent; Z72.0 Tobacco use
CPT/HCPCS: 90004; 90100; 90616; 91320; 91556; 92235; 92530; 92610; 95059

== ENCOUNTER 2017-02-10 02:03 | Emergency (ER) | payer OTHER ==
--- NOTE | 2017-02-10 03:42 | ED CLINICAL REPORT ---
Clinical Report - Physicians/Mid Levels [facility] [address] [place] [address] 02/10/2017 2:03 Patient: RA VARGAS Time Seen: 02:29. Arrived- By private vehicle. Historian- patient. HISTORY OF PRESENT ILLNESS Chief Complaint: CONSTIPATION. At its maximum, severity described as severe. When seen in the E.D., severity described as severe. It is described as "pain" and cramping. This started about 1 week ago and is still present. It was gradual in onset and has been constant. Similar symptoms previously: Diagnosis: constipation. Recent medical care: The patient was seen recently at this facility. Seen for other problems. Diagnosis: (CHF). REVIEW OF SYSTEMS The patient has had severe constipation. Last bowel movement- 1 week ago. No chills, sweats, calf pain, chest pain or cough. No difficulty breathing, pedal edema, palpitations, black stools or bloody stools. No diarrhea or urinary problems. All systems otherwise negative, except as recorded above. PAST HISTORY Problems: Congestive Heart Failure. Abdominal Pain. Constipation. Cellulitis LE's. CHF. Laceration. Abscess. Hyperlipidemia. High blood pressure. Additional Surgeries: Back Surgery. Knee Surgery. Medications: Gabapentin Oral. Carvedilol Phosphate ER Oral. Lasix Oral. Carvedilol Phosphate ER Oral. Allergies: Sulfa Antibiotics. Tramadol. SOCIAL HISTORY Current every day light tobacco smoker (cigarette)- less than 1/2 a pack per day. No alcohol use or drug use. FAMILY HISTORY No significant family medical history. ADDITIONAL NOTES The nursing notes have been reviewed. PHYSICAL EXAM Vital Signs: 02/10/2017 02:13 BP: 143/102. HR: 115. RR: 24. O2 saturation: 100%. Temp: 97.9 F. Pain level now: 10/10. Have been reviewed. Appearance: Alert. Eyes: Pupils equal, round and reactive to light. ENT: Pharynx normal. Neck: Normal inspection. Neck supple. CVS: Normal heart rate and rhythm. Heart sounds normal. Respiratory: No respiratory distress. Breath sounds normal. Abdomen: Soft. Mild tenderness diffusely. Bowel sounds normal. No organomegaly. No mass. Back: Normal inspection. No CVA tenderness. Skin: Skin warm and dry. Extremities: Extremities exhibit normal ROM. No calf tenderness. No lower extremity edema. (Bilateral hairlessness and hyperpigmentation). PROGRESS AND PROCEDURES Course of Care: Patient is stable. Patient/family counseled. Old medical records reviewed. Disposition: Discharged. Condition: stable. CLINICAL IMPRESSION Constipation INSTRUCTIONS Drink plenty of fluids. Warnings: GENERAL WARNINGS: Return or contact your physician immediately if your condition worsens or changes unexpectedly, if not improving as expected, or if other problems arise. Prescription Medications: Fleet Enema 7.8 oz: insert the enema into rectum gently and squeeze until nearly all the liquid is expelled as needed for constipation. Dispense one (1) bottle. No refills. Substitution is permissible. OTC Medications: Colace capsules (available over the counter): take according to label instructions. Magnesium Citrate (10-oz bottle) (available over the counter): take 1 bottle to achieve bowel movement. Repeat after 4 hours if needed. Follow-up: Follow up with your doctor tomorrow if not better. Understanding of the discharge instructions verbalized by patient. (Electronically signed by Tate Altamirano MD 02/10/2017 9:07)
--- NOTE | 2017-02-10 03:42 | ED CLINICAL REPORT ---
Clinical Report - Physicians/Mid Levels [facility] [address] [place] [address] 02/10/2017 2:03 Patient: RA VARGAS Time Seen: 02:29. Arrived- By private vehicle. Historian- patient. HISTORY OF PRESENT ILLNESS Chief Complaint: CONSTIPATION. At its maximum, severity described as severe. When seen in the E.D., severity described as severe. It is described as "pain" and cramping. This started about 1 week ago and is still present. It was gradual in onset and has been constant. Similar symptoms previously: Diagnosis: constipation. Recent medical care: The patient was seen recently at this facility. Seen for other problems. Diagnosis: (CHF). REVIEW OF SYSTEMS The patient has had severe constipation. Last bowel movement- 1 week ago. No chills, sweats, calf pain, chest pain or cough. No difficulty breathing, pedal edema, palpitations, black stools or bloody stools. No diarrhea or urinary problems. All systems otherwise negative, except as recorded above. PAST HISTORY Problems: Congestive Heart Failure. Abdominal Pain. Constipation. Cellulitis LE's. CHF. Laceration. Abscess. Hyperlipidemia. High blood pressure. Additional Surgeries: Back Surgery. Knee Surgery. Medications: Gabapentin Oral. Carvedilol Phosphate ER Oral. Lasix Oral. Carvedilol Phosphate ER Oral. Allergies: Sulfa Antibiotics. Tramadol. SOCIAL HISTORY Current every day light tobacco smoker (cigarette)- less than 1/2 a pack per day. No alcohol use or drug use. FAMILY HISTORY No significant family medical history. ADDITIONAL NOTES The nursing notes have been reviewed. PHYSICAL EXAM Vital Signs: 02/10/2017 02:13 BP: 143/102. HR: 115. RR: 24. O2 saturation: 100%. Temp: 97.9 F. Pain level now: 10/10. Have been reviewed. Appearance: Alert. Eyes: Pupils equal, round and reactive to light. ENT: Pharynx normal. Neck: Normal inspection. Neck supple. CVS: Normal heart rate and rhythm. Heart sounds normal. Respiratory: No respiratory distress. Breath sounds normal. Abdomen: Soft. Mild tenderness diffusely. Bowel sounds normal. No organomegaly. No mass. Back: Normal inspection. No CVA tenderness. Skin: Skin warm and dry. Extremities: Extremities exhibit normal ROM. No calf tenderness. No lower extremity edema. (Bilateral hairlessness and hyperpigmentation). PROGRESS AND PROCEDURES Course of Care: Patient is stable. Patient/family counseled. Old medical records reviewed. Disposition: Discharged. Condition: stable. CLINICAL IMPRESSION Constipation INSTRUCTIONS Drink plenty of fluids. Warnings: GENERAL WARNINGS: Return or contact your physician immediately if your condition worsens or changes unexpectedly, if not improving as expected, or if other problems arise. Prescription Medications: Fleet Enema 7.8 oz: insert the enema into rectum gently and squeeze until nearly all the liquid is expelled as needed for constipation. Dispense one (1) bottle. No refills. Substitution is permissible. OTC Medications: Colace capsules (available over the counter): take according to label instructions. Magnesium Citrate (10-oz bottle) (available over the counter): take 1 bottle to achieve bowel movement. Repeat after 4 hours if needed. Follow-up: Follow up with your doctor tomorrow if not better. Understanding of the discharge instructions verbalized by patient. (Electronically signed by Tate Altamirano MD 02/10/2017 9:07)
--- NOTE | 2017-02-10 03:42 | ED NURSING NOTES ---
Clinical Report - Nurses [facility] [place] [address] 02/10/2017 2:03 Patient: RA VARGAS TRIAGE 02:13 02/10/17. BP: 143/102. HR: 115. RR: 24. O2 saturation: 100% on room air. Temp: 97.9 F (oral). Pain level now: 05/30. --02:15 McQuoid, Whit, ER Tech1 Triage time 02:16. Acuity: LEVEL 3. Chief Complaint: CONSTIPATION. --02:21 Sheriff Mccarthy R.N. Weight: 122.4 kg stated. Height/Length: 73 inches Per Patient. BMI: 35.6. --02:14 McQuoid, Whit, ER Tech1. Medications Carvedilol Phosphate ER Oral. --02:14 McQuoid, Whit, ER Tech1 Lasix Oral. --02:14 McQuoid, Whit, ER Tech1 Carvedilol Phosphate ER Oral. --02:18 Sheriff Mccarthy R.N. Gabapentin Oral. --02:19 Sheriff Mccarthy R.N. Allergies Sulfa Antibiotics. Tramadol. --02:14 McQuoid, Whit, ER Tech1. History Arrived by private vehicle. Historian: patient. Accompanied by family. Onset. (1 weeks ago). ( No Bowel movement for one week). SURGERY HX: ( Back, Left knee). SOCIAL HX: Smoker- current status unknown (cigarette) (5 daily). No alcohol use or drug use. FALL RISK ASSESSMENT: Fall risk assessment completed. No fall risk identified. NUTRITIONAL RISK ASSESSMENT: The nutritional risk assessment revealed no deficiencies. FUNCTIONAL ASSESSMENT: Functional assessment: no impairments noted. LEARNING NEEDS ASSESSMENT: The learning needs assessment revealed no barriers. SKIN INTEGRITY ASSESSMENT: Skin integrity risk assessment completed. No skin integrity risk identified. --02:21 Sheriff Mccarthy R.N. PROBLEMS: Congestive Heart Failure. Abdominal Pain. Constipation. Cellulitis LE's. CHF. Laceration. Abscess. Hyperlipidemia. High blood pressure. --02:20 Sheriff Mccarthy R.N. Interventions ID band on patient. --02:21 Sheriff Mccarthy R.N. PHYSICAL ASSESSMENT Patient gowned. GENERAL / NEURO / PSYCH: Alert. Oriented X 4. Appears anxious. HEENT: No facial asymmetry noted. Mucous membranes are pink. RESPIRATORY: Respirations not labored. SKIN: Skin intact. Skin is warm and dry. --02:21 Sheriff Mccarthy R.N. NURSING PROGRESS NOTES Two patient identifiers checked. Call light placed in reach. Side rails up x 2. Bed placed in lowest position. Brakes of bed on. --02:22 Sheriff Mccarthy R.N. 02:59 Patient ambulatory to restroom with steady gait. --02:59 McQuoid, Whit, ER Tech1. DISPOSITION / DISCHARGE 03:52 02/10/17. No learning barriers present. Discharge instructions provided and reviewed with the patient. Reviewed warnings. Reviewed medication(s). Treatments reviewed. Reviewed diet. Patient verbalized understanding. Written instructions provided in [place]i. The patient was discharged home and accompanied by public policy professor. He left the Emergency Department ambulatory and via private vehicle. --03:52 Daphney Gonzalez R.N. 03:49 02/10/17. BP: 134/74. HR: 103. RR: 15. O2 saturation: 100%. Temp: deferred. Pain level now: 05/30. --03:52 Daphney Gonzalez R.N. Locked/Released at 02/10/2017 6:14 by Daphney Gonzalez R.N.
--- NOTE | 2017-02-10 03:42 | ED NURSING NOTES ---
Clinical Report - [facility] [place] [address] 02/10/2017 2:03 Patient: RA VARGAS TRIAGE 02:13 02/10/17. BP: 143/102. HR: 115. RR: 24. O2 saturation: 100% on room air. Temp: 97.9 F (oral). Pain level now: 05/30. --02:15 McQuoid, Whit, ER Tech1 Triage time 02:16. Acuity: LEVEL 3. Chief Complaint: CONSTIPATION. --02:21 Sheriff Mccarthy R.N. Weight: 122.4 kg stated. Height/Length: 73 inches Per Patient. BMI: 35.6. --02:14 McQuoid, Whit, ER Tech1. Medications Carvedilol Phosphate ER Oral. --02:14 McQuoid, Whit, ER Tech1 Lasix Oral. --02:14 McQuoid, Whit, ER Tech1 Carvedilol Phosphate ER Oral. --02:18 Sheriff Mccarthy R.N. Gabapentin Oral. --02:19 Sheriff Mccarthy R.N. Allergies Sulfa Antibiotics. Tramadol. --02:14 McQuoid, Whit, ER Tech1. History Arrived by private vehicle. Historian: patient. Accompanied by family. Onset. (1 weeks ago). ( No Bowel movement for one week). SURGERY HX: ( Back, Left knee). SOCIAL HX: Smoker- current status unknown (cigarette) (5 daily). No alcohol use or drug use. FALL RISK ASSESSMENT: Fall risk assessment completed. No fall risk identified. NUTRITIONAL RISK ASSESSMENT: The nutritional risk assessment revealed no deficiencies. FUNCTIONAL ASSESSMENT: Functional assessment: no impairments noted. LEARNING NEEDS ASSESSMENT: The learning needs assessment revealed no barriers. SKIN INTEGRITY ASSESSMENT: Skin integrity risk assessment completed. No skin integrity risk identified. --02:21 Sheriff Mccarthy R.N. PROBLEMS: Congestive Heart Failure. Abdominal Pain. Constipation. Cellulitis LE's. CHF. Laceration. Abscess. Hyperlipidemia. High blood pressure. --02:20 Sheriff Mccarthy R.N. Interventions ID band on patient. --02:21 Sheriff Mccarthy R.N. PHYSICAL ASSESSMENT Patient gowned. GENERAL / NEURO / PSYCH: Alert. Oriented X 4. Appears anxious. HEENT: No facial asymmetry noted. Mucous membranes are pink. RESPIRATORY: Respirations not labored. SKIN: Skin intact. Skin is warm and dry. --02:21 Sheriff Mccarthy R.N. NURSING PROGRESS NOTES Two patient identifiers checked. Call light placed in reach. Side rails up x 2. Bed placed in lowest position. Brakes of bed on. --02:22 Sheriff Mccarthy R.N. 02:59 Patient ambulatory to restroom with steady gait. --02:59 McQuoid, Whit, ER Tech1. DISPOSITION / DISCHARGE 03:52 02/10/17. No learning barriers present. Discharge instructions provided and reviewed with the patient. Reviewed warnings. Reviewed medication(s). Treatments reviewed. Reviewed diet. Patient verbalized understanding. Written instructions provided in Salvadorean. The patient was discharged home and accompanied by archeology professor. He left the Emergency Department ambulatory and via private vehicle. --03:52 Daphney Gonzalez R.N. 03:49 02/10/17. BP: 134/74. HR: 103. RR: 15. O2 saturation: 100%. Temp: deferred. Pain level now: 05/30. --03:52 Daphney Gonzalez R.N. Locked/Released at 02/10/2017 6:14 by Daphney Gonzalez R.N.
--- NOTE | 2017-02-10 09:07 | ED MED RECONCILIATION SUMMARY ---
Patient: RA VARGAS Medication Reconciliation Report [facility] VisitID: [id number] [address] [place] [address] 41y, M Registration Date/Time: 02/10/2017 Weight: 122.4 kg Height/Length: 73 in. BMI: 35.6 ALLERGIES: Sulfa Antibiotics, Tramadol The patient's Home Medications are listed below: THE FOLLOWING MEDICATIONS NEED TO BE RECONCILED: Carvedilol Phosphate ER Oral Carvedilol Phosphate ER Oral Gabapentin Oral Lasix Oral The source(s) of the original Home Medication information: Not obtained. The following Medications were given to the patient in the Emergency Department: None. The following Medications were prescribed to the patient: Colace capsules (available over the counter): take according to label instructions. -- Tate Altamirano MD Magnesium Citrate (10-oz bottle) (available over the counter): take 1 bottle to achieve bowel movement. Repeat after 4 hours if needed. -- Tate Altamirano MD Fleet Enema 7.8 oz: insert the enema into rectum gently and squeeze until nearly all the liquid is expelled as needed for constipation. Dispense one (1) bottle. No refills. Substitution is permissible. -- Tate Altamirano MD
--- NOTE | 2017-02-10 09:07 | ED MED RECONCILIATION SUMMARY ---
Patient: RA VARGAS Medication Reconciliation Report [facility] VisitID: [id number] [address] [place] [address] 41y, M Registration Date/Time: 02/10/2017 Weight: 122.4 kg Height/Length: 73 in. BMI: 35.6 ALLERGIES: Sulfa Antibiotics, Tramadol The patient's Home Medications are listed below: THE FOLLOWING MEDICATIONS NEED TO BE RECONCILED: Carvedilol Phosphate ER Oral Carvedilol Phosphate ER Oral Gabapentin Oral Lasix Oral The source(s) of the original Home Medication information: Not obtained. The following Medications were given to the patient in the Emergency Department: None. The following Medications were prescribed to the patient: Colace capsules (available over the counter): take according to label instructions. -- Tate Altamirano MD Magnesium Citrate (10-oz bottle) (available over the counter): take 1 bottle to achieve bowel movement. Repeat after 4 hours if needed. -- Tate Altamirano MD Fleet Enema 7.8 oz: insert the enema into rectum gently and squeeze until nearly all the liquid is expelled as needed for constipation. Dispense one (1) bottle. No refills. Substitution is permissible. -- Tate Altamirano MD
--- NOTE | 2017-02-10 09:07 | ED MAR SUMMARY ---
..... Medication Administration Record [facility] [address] [place], [place] [id number] Patient: RA VARGAS Visit ID: [id number] 41y, M Weight: 122.4 kg Height/Length: 73 in BMI: 35.6 ALLERGIES: Sulfa Antibiotics, Tramadol
--- NOTE | 2017-02-10 09:07 | ED DISCHARGE INSTRUCTIONS ---
Patient: RA VARGAS General Instructions [facility] VisitID: [id number] [place] [address] 41y, M Registration Date/Time: 02/10/2017 Constipation INSTRUCTIONS Drink plenty of fluids. Warnings: GENERAL WARNINGS: Return or contact your physician immediately if your condition worsens or changes unexpectedly, if not improving as expected, or if other problems arise. Prescription Medications: Fleet Enema 7.8 oz: insert the enema into rectum gently and squeeze until nearly all the liquid is expelled as needed for constipation. Dispense one (1) bottle. No refills. Substitution is permissible. OTC Medications: Colace capsules (available over the counter): take according to label instructions. Magnesium Citrate (10-oz bottle) (available over the counter): take 1 bottle to achieve bowel movement. Repeat after 4 hours if needed. Follow-up: Follow up with your doctor tomorrow if not better. Understanding of the discharge instructions verbalized by patient. ADDITIONAL INFORMATION Constipation (Adult) Constipation is bowel movements that are less frequent than usual. Stools often become very hard and difficult to pass. This may lead to abdominal pain and bloating. It may also cause painful bowel movements. Constipation may be due to a diet thats low in fiber. Some medications, especially pain medications, can also cause it. Constipation may be treated with enemas, suppositories, laxatives or stool softeners. Your doctor will advise you which will work best for you. Follow the advice below to help avoid this problem in the future. Home Care Medication: Take any medicines as directed. Some laxatives are safe only for occasional use. Others can be taken on a regular basis. Talk to your doctor or pharmacist if you have questions. General Care: Prescription pain medications can cause constipation. If you are prescribed pain medications, ask the doctor whether you should also take a stool softener. A diet high in fiber with plenty of fluids helps to maintain regular, soft bowel movements. The following foods are good sources of dietary fiber: Cereals and breads: Whole grain cereal with bran, oatmeal, rolled oats, whole grain breads Fruits: All fruits (fresh and dried), raisins, prunes, apricots, berries, figs Vegetables: Any fresh vegetables, especially peas, broccoli, brussels sprouts, winter squash, green beans, cauliflower, mansfield beans, carrots Other: Popcorn, brown rice Drink plenty of water when you increase the amount of fiber you eat. Follow Up with your doctor or return to this facility if symptoms do not improve in the next few days. You may require further tests or a referral to a specialist. Get Prompt Medical Attention if any of the following occur: Fever over 100.4F (38C) Failure to resume normal bowel movements Increasing abdominal or back pain Nausea or vomiting Abdominal swelling Blood in the stool Weakness, dizziness or fainting Unexpected vaginal bleeding High Fiber Diet Fiber is present in all fruits, vegetables, cereals and grains. Fiber passes through the body undigested. A high fiber diet helps food move through the intestinal tract. The added bulk is helpful in preventing constipation. In people with diverticulosis it serves to clean out the pouches along the colon wall while preventing new ones from forming. A high fiber diet also reduces the risk of colon cancer, decreases blood cholesterol and prevents high blood sugar in people with diabetes. The foods listed below are high in fiber and should be included in your diet. If you are not used to high fiber foods, start with 1 or 2 foods from this list. Every 3-4 days add a new one to your diet until you are eating 4 high fiber foods per day. This should give you 20-35 Gm of fiber/day. It is also important to drink a lot of water when you are on this diet (6-8 glasses a day). Water causes the fiber to swell and increases the benefit. Foods High In Dietary Fiber: BREADS: Made with 100% whole wheat flour; chandan, wheat or rye crackers; tortillas, bran muffins CEREALS: Whole grain cereal with bran (Chex, Raisin Bran, Sarah Bran), oatmeal, rolled oats, granola, wheat flakes, brown rice NUTS: Any nuts FRUITS: All fresh fruits along with edible skins, (bananas, citrus fruit, mangoes, pears, prunes, raisins, apples, pineapple, apricot, melon, jams and marmalades), fruit juices (especially prune juice) VEGETABLES: All types, preferably raw or lightly cooked: especially, celery, eggplant, potatoes,spinach, broccoli, brussel sprouts, winter squash, carrots, cauliflower, soybeans, lentils, fresh and dried beans of all kinds OTHER: Popcorn, any spices Docusate Sodium Oral tablet What is this medicine? DOCUSATE (doc CUE sayt) is stool softener. It helps prevent constipation and straining or discomfort associated with hard or dry stools. How should I use this medicine? Take this medicine by mouth with a glass of water. Follow the directions on the label. Take your doses at regular intervals. Do not take your medicine more often than directed. Talk to your director religious education regarding the use of this medicine in children. While this medicine may be prescribed for children as young as 2 years for selected conditions, precautions do apply. What side effects may I notice from receiving this medicine? Side effects that you should report to your doctor or health child care coordinator as soon as possible: allergic reactions like skin rash, itching or hives, swelling of the face, lips, or tongue Side effects that usually do not require medical attention (report to your doctor or health child care coordinator if they continue or are bothersome): diarrhea stomach cramps throat irritation What may interact with this medicine? mineral oil What if I miss a dose? If you miss a dose, take it as soon as you can. If it is almost time for your next dose, take only that dose. Do not take double or extra doses. Where should I keep my medicine? Keep out of the reach of children. Store at room temperature between 15 and 30 degrees C (59 and 86 degrees F). Throw away any unused medicine after the expiration date. What should I tell my health care provider before I take this medicine? They need to know if you have any of these conditions: nausea or vomiting severe constipation stomach pain sudden change in bowel habit lasting more than 2 weeks an unusual or allergic reaction to docusate, other medicines, foods, dyes, or preservatives or trying to get breast-feeding What should I watch for while using this medicine? Do not use for more than one week without advice from your doctor or health child care coordinator. If your constipation returns, check with your doctor or health child care coordinator. Drink plenty of water while taking this medicine. Drinking water helps decrease constipation. Stop using this medicine and contact your doctor or health child care coordinator if you experience any rectal bleeding or do not have a bowel movement after use. These could be signs of a more serious condition. You have been given the following additional information: Constipation (Adult) Diet, High Fiber Docusate Sodium Oral tablet (Electronically signed by Tate Altamirano MD 02/10/2017 9:07)
--- NOTE | 2017-02-10 09:07 | ED MAR SUMMARY ---
..... Medication Administration Record [facility] [address] [place], [place] [id number] Patient: RA VARGAS Visit ID: [id number] 41y, M Weight: 122.4 kg Height/Length: 73 in BMI: 35.6 ALLERGIES: Sulfa Antibiotics, Tramadol
--- NOTE | 2017-02-10 09:07 | ED DISCHARGE INSTRUCTIONS ---
Patient: RA VARGAS General Instructions [facility] VisitID: [id number] [place] [address] 41y, M Registration Date/Time: 02/10/2017 Constipation INSTRUCTIONS Drink plenty of fluids. Warnings: GENERAL WARNINGS: Return or contact your physician immediately if your condition worsens or changes unexpectedly, if not improving as expected, or if other problems arise. Prescription Medications: Fleet Enema 7.8 oz: insert the enema into rectum gently and squeeze until nearly all the liquid is expelled as needed for constipation. Dispense one (1) bottle. No refills. Substitution is permissible. OTC Medications: Colace capsules (available over the counter): take according to label instructions. Magnesium Citrate (10-oz bottle) (available over the counter): take 1 bottle to achieve bowel movement. Repeat after 4 hours if needed. Follow-up: Follow up with your doctor tomorrow if not better. Understanding of the discharge instructions verbalized by patient. ADDITIONAL INFORMATION Constipation (Adult) Constipation is bowel movements that are less frequent than usual. Stools often become very hard and difficult to pass. This may lead to abdominal pain and bloating. It may also cause painful bowel movements. Constipation may be due to a diet thats low in fiber. Some medications, especially pain medications, can also cause it. Constipation may be treated with enemas, suppositories, laxatives or stool softeners. Your doctor will advise you which will work best for you. Follow the advice below to help avoid this problem in the future. Home Care Medication: Take any medicines as directed. Some laxatives are safe only for occasional use. Others can be taken on a regular basis. Talk to your doctor or pharmacist if you have questions. General Care: Prescription pain medications can cause constipation. If you are prescribed pain medications, ask the doctor whether you should also take a stool softener. A diet high in fiber with plenty of fluids helps to maintain regular, soft bowel movements. The following foods are good sources of dietary fiber: Cereals and breads: Whole grain cereal with bran, oatmeal, rolled oats, whole grain breads Fruits: All fruits (fresh and dried), raisins, prunes, apricots, berries, figs Vegetables: Any fresh vegetables, especially peas, broccoli, brussels sprouts, winter squash, green beans, cauliflower, mansfield beans, carrots Other: Popcorn, brown rice Drink plenty of water when you increase the amount of fiber you eat. Follow Up with your doctor or return to this facility if symptoms do not improve in the next few days. You may require further tests or a referral to a specialist. Get Prompt Medical Attention if any of the following occur: Fever over 100.4F (38C) Failure to resume normal bowel movements Increasing abdominal or back pain Nausea or vomiting Abdominal swelling Blood in the stool Weakness, dizziness or fainting Unexpected vaginal bleeding High Fiber Diet Fiber is present in all fruits, vegetables, cereals and grains. Fiber passes through the body undigested. A high fiber diet helps food move through the intestinal tract. The added bulk is helpful in preventing constipation. In people with diverticulosis it serves to clean out the pouches along the colon wall while preventing new ones from forming. A high fiber diet also reduces the risk of colon cancer, decreases blood cholesterol and prevents high blood sugar in people with diabetes. The foods listed below are high in fiber and should be included in your diet. If you are not used to high fiber foods, start with 1 or 2 foods from this list. Every 3-4 days add a new one to your diet until you are eating 4 high fiber foods per day. This should give you 20-35 Gm of fiber/day. It is also important to drink a lot of water when you are on this diet (6-8 glasses a day). Water causes the fiber to swell and increases the benefit. Foods High In Dietary Fiber: BREADS: Made with 100% whole wheat flour; chandan, wheat or rye crackers; tortillas, bran muffins CEREALS: Whole grain cereal with bran (Chex, Raisin Bran, Woolrich Bran), oatmeal, rolled oats, granola, wheat flakes, brown rice NUTS: Any nuts FRUITS: All fresh fruits along with edible skins, (bananas, citrus fruit, mangoes, pears, prunes, raisins, apples, pineapple, apricot, melon, jams and marmalades), fruit juices (especially prune juice) VEGETABLES: All types, preferably raw or lightly cooked: especially, celery, eggplant, potatoes,spinach, broccoli, brussel sprouts, winter squash, carrots, cauliflower, soybeans, lentils, fresh and dried beans of all kinds OTHER: Popcorn, any spices Docusate Sodium Oral tablet What is this medicine? DOCUSATE (doc CUE sayt) is stool softener. It helps prevent constipation and straining or discomfort associated with hard or dry stools. How should I use this medicine? Take this medicine by mouth with a glass of water. Follow the directions on the label. Take your doses at regular intervals. Do not take your medicine more often than directed. Talk to your parent partner regarding the use of this medicine in children. While this medicine may be prescribed for children as young as 2 years for selected conditions, precautions do apply. What side effects may I notice from receiving this medicine? Side effects that you should report to your doctor or health primary care pediatrician as soon as possible: allergic reactions like skin rash, itching or hives, swelling of the face, lips, or tongue Side effects that usually do not require medical attention (report to your doctor or health primary care pediatrician if they continue or are bothersome): diarrhea stomach cramps throat irritation What may interact with this medicine? mineral oil What if I miss a dose? If you miss a dose, take it as soon as you can. If it is almost time for your next dose, take only that dose. Do not take double or extra doses. Where should I keep my medicine? Keep out of the reach of children. Store at room temperature between 15 and 30 degrees C (59 and 86 degrees F). Throw away any unused medicine after the expiration date. What should I tell my health care provider before I take this medicine? They need to know if you have any of these conditions: nausea or vomiting severe constipation stomach pain sudden change in bowel habit lasting more than 2 weeks an unusual or allergic reaction to docusate, other medicines, foods, dyes, or preservatives or trying to get breast-feeding What should I watch for while using this medicine? Do not use for more than one week without advice from your doctor or health primary care pediatrician. If your constipation returns, check with your doctor or health primary care pediatrician. Drink plenty of water while taking this medicine. Drinking water helps decrease constipation. Stop using this medicine and contact your doctor or health primary care pediatrician if you experience any rectal bleeding or do not have a bowel movement after use. These could be signs of a more serious condition. You have been given the following additional information: Constipation (Adult) Diet, High Fiber Docusate Sodium Oral tablet (Electronically signed by Tate Altamirano MD 02/10/2017 9:07)
== END 2017-02-10 03:52 | disposition home or self-care (01) ==
LOC: ED SRH 02:03
DX: K59.00 Constipation, unspecified (principal); I50.9 Heart failure, unspecified; E78.5 Hyperlipidemia, unspecified; Z79.899 Other long term (current) drug therapy; Z88.1 Allergy status to other antibiotic agents; Z88.5 Allergy status to narcotic agent; F17.210 Nicotine dependence, cigarettes, uncomplicated